=== PATIENT | female | born 1950 | race Caucasian/White ===

== ENCOUNTER 2017-07-12 22:03 | Observation (INO) | payer MEDICARE, OTHER ==
[~2017-07-12] VITALS: Ht 162.6 cm; Wt 97.0 kg
[2017-07-12] VITALS (7 sets, daily range): BP systolic 106–109; BP diastolic 50–68; PULSE 77–91; RESP 15–22; TEMP 98.3; O2SAT 79–97
[~2017-07-12 22:03] MED LIST: ADVA100A INH; AMLO5TAB2 PO; ASPI1TAB69 PO; LOSA100T PO
[2017-07-12] MEDS ORDERED: RESP: ALBUTEROL 2.5 MG/IPRATROPIUM 0.5 MG NEB (SCH) INH ONE (22:30)
[2017-07-12] MEDS ORDERED: MAGNESIUM SULFATE 1 GM PREMIX 100 ML IV ONE (22:30)
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
[2017-07-12] MEDS: RESP: ALBUTEROL 2.5 MG/3 ML NEB (SCH) INH ×2 (22:37→22:38)
--- NOTE | 2017-07-12 22:45 | RADRPT ---
EXAM DATE/TIME: 07/12/2017 22:20 [place] COMPARISON: No previous studies available for comparison. INDICATIONS : Shortness of breath. MEDICAL HISTORY : Chronic obstructive pulmonary disease. Hypertension SURGICAL HISTORY : None. ENCOUNTER: Initial ACUITY: 3 days PAIN SCORE: 0/10 LOCATION: Bilateral chest FINDINGS: Very mild atelectasis seen at both bases. No large effusion demonstrated. No pneumothorax. Heart size upper limits of normal. CONCLUSION: Mild bibasilar atelectasis. Daniel Eugene MD on July 12, 2017 at 22:43 Board Certified Radiologist. This report was verified electronically.
[2017-07-12 23:00] LABS: AUTOMATED NEUTROPHIL # 4.4 TH/MM3 (1.8-7.7); BASOPHIL % 0.6 % (0.0-2.0); EOSINOPHIL # 0.2 TH/MM3 (0-0.4); EOSINOPHIL % 2.6 % (0.0-4.0); HEMO FLAGS DIFF FINAL; LYMPH % 17.3 % (9.0-44.0); LYMPHOCYTE # 1.2 TH/MM3 (1.0-4.8); MEAN CORPUSCULAR HEMOGLOBIN 30.5 PG (27.0-34.0); MEAN CORPUSCULAR HGB CONC 32.5 % (32.0-36.0); MONO % 16.8 % (0.0-8.0); NEUT % 62.7 % (16.0-70.0); PLATELET COUNT 164 TH/MM3 (150-450); RED BLOOD COUNT 4.78 MIL/MM3 (4.00-5.30); RED CELL DISTRIBUTION WIDTH 13.3 % (11.6-17.2)
[2017-07-12] MEDS ORDERED: SODIUM CHLOR 0.9% 1000 ML INJ 1,000 ML IV ONE (23:00)
[2017-07-12 23:09] LABS: APTT (PATIENT) 26.8 SEC (24.3-30.1); PROTHROMBIN TIME - PATIENT 10.6 SEC (9.8-11.6)
[2017-07-12 23:16] LABS: ALKALINE PHOSPHATASE 55 U/L (45-117); ALT (GPT) 16 U/L (10-53); ANION GAP 4 MEQ/L (5-15); AST (GOT) 14 U/L (15-37); BICARBONATE 28.1 MEQ/L (21.0-32.0); BLOOD UREA NITROGEN 10 MG/DL (7-18); CHLORIDE 106 MEQ/L (98-107); GLOMERULAR FILTRATION RATE 79 ML/MIN (>89); POTASSIUM 4.1 MEQ/L (3.5-5.1); SODIUM (NA) 138 MEQ/L (136-145); TOTAL BILIRUBIN ADULT 0.3 MG/DL (0.2-1.0)
[2017-07-12 23:17] LABS: CREATINE KINASE 93 U/L (26-192)
[2017-07-12] MEDS ORDERED: RESP: ALBUTEROL 2.5 MG/3 ML NEB (PRN) INH (23:45)
[2017-07-12] MEDS ORDERED: SODIUM CHLORIDE 0.9% FLUSH 10 ML FLUSH IV FLUSH PRN (23:45)
[2017-07-12] MEDS ORDERED: ASPI81CH CHEW (23:49)
[2017-07-13] VITALS (28 sets, daily range): BP systolic 114–145; BP diastolic 60–83; PULSE 66–97; RESP 16–20; TEMP 97.4–99.3; O2SAT 91–95
[2017-07-13] MEDS ORDERED: RESP: ALBUTEROL 2.5 MG/IPRATROPIUM 0.5 MG NEB (SCH) INH (04:00)
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
[2017-07-13] MEDS: SODIUM CHLORIDE 0.9% FLUSH 10 ML FLUSH IV FLUSH SCH ×2 (09:39→21:00)
[2017-07-13] MEDS: amLODIPine BESYLATE 5 MG TAB PO SCH (09:40)
[2017-07-13] MEDS: ASPIRIN 81 MG CHEW TAB CHEW SCH (09:40)
[2017-07-13] MEDS: guaiFENesin E.R. 600 MG TAB PO SCH ×2 (09:40→20:40)
[2017-07-13] MEDS: LOSARTAN 50 MG TAB PO SCH (09:40)
[2017-07-13] MEDS: RESP: ALBUTEROL 2.5 MG/IPRATROPIUM 0.5 MG NEB (SCH) NEB ×3 (10:45→21:01)
[2017-07-13] MEDS ORDERED: PILL SPLITTER OTHER PRN (13:00)
[2017-07-13] MEDS ORDERED: methylPREDNISolone SOD SUCC 125 MG/2 ML VIAL IVP SCH (14:00)
[2017-07-13] MEDS: methylPREDNISolone SOD SUCC 125 MG/2 ML VIAL IV PUSH SCH ×2 (17:27→23:00)
--- NOTE | 2017-07-13 21:27 | EKG ---
Date Performed: 07/12/2017 Time Performed: 22:43:51 PTAGE: 66 years EKG: Sinus rhythm NORMAL ECG NO PREVIOUS TRACING DOCTOR: Alayna Pearson Interpretating Date/Time 07/13/2017 21:26:48
[2017-07-13] MEDS ORDERED: AZITHROMYCIN 250 MG TAB PO ONE (23:45)
[2017-07-14] VITALS (22 sets, daily range): BP systolic 106–139; BP diastolic 53–94; PULSE 59–95; RESP 19–20; TEMP 97.4–98.9; O2SAT 91–96
[2017-07-14] MEDS ORDERED: methylPREDNISolone SOD SUCC 125 MG/2 ML VIAL IVP SCH
[2017-07-14] MEDS: RESP: ALBUTEROL 2.5 MG/IPRATROPIUM 0.5 MG NEB (SCH) NEB ×4 (03:09→20:28)
[2017-07-14] MEDS ORDERED: AZIT250T3 PO (07:30)
[2017-07-14] MEDS ORDERED: PRED10 PO (07:30)
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
[2017-07-14] MEDS: LOSARTAN 50 MG TAB PO SCH (09:56)
[2017-07-14] MEDS: guaiFENesin E.R. 600 MG TAB PO SCH ×2 (09:56→21:33)
[2017-07-14] MEDS: predniSONE 20 MG TAB PO SCH ×2 (09:56→21:34)
[2017-07-14] MEDS: SODIUM CHLORIDE 0.9% FLUSH 10 ML FLUSH IV FLUSH SCH ×2 (09:56→21:36)
[2017-07-14] MEDS: ASPIRIN 81 MG CHEW TAB CHEW SCH (09:56)
[2017-07-14] MEDS: amLODIPine BESYLATE 5 MG TAB PO SCH (09:56)
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
[2017-07-14] MEDS ORDERED: AZITHROMYCIN 250 MG TAB PO SCH (21:00)
[2017-07-15 04:00] VITALS: PULSE 58
[2017-07-15] MEDS: RESP: ALBUTEROL 2.5 MG/IPRATROPIUM 0.5 MG NEB (SCH) NEB ×2 (04:36→09:46)
[2017-07-15 07:00] VITALS: PULSE 58
[2017-07-15 08:00] VITALS: BP 149/86; PULSE 58; PULSE 64; RESP 20; TEMP 98.5; O2SAT 93
[2017-07-15 09:00] VITALS: PULSE 64
[2017-07-15] MEDS: LOSARTAN 50 MG TAB PO SCH (09:23)
[2017-07-15] MEDS: guaiFENesin E.R. 600 MG TAB PO SCH (09:23)
[2017-07-15] MEDS: predniSONE 20 MG TAB PO SCH (09:24)
[2017-07-15] MEDS: amLODIPine BESYLATE 5 MG TAB PO SCH (09:25)
[2017-07-15] MEDS: SODIUM CHLORIDE 0.9% FLUSH 10 ML FLUSH IV FLUSH SCH (09:25)
[2017-07-15] MEDS: ASPIRIN 81 MG CHEW TAB CHEW SCH (09:25)
[2017-07-15 09:49] VITALS: O2SAT 93
== END 2017-07-15 10:45 | disposition home or self-care (01) ==
LOC: NEPD 22:03 → NEDA 23:43 → HCIS 07-13 00:48
PROVIDERS: ADMIT Hospitalist; ATTEND Hospitalist
DX: J44.1 Chronic obstructive pulmonary disease with (acute) exacerbation (principal); R09.02 Hypoxemia; I10 Essential (primary) hypertension; Z99.81 Dependence on supplemental oxygen; K59.00 Constipation, unspecified; Z72.0 Tobacco use
CPT/HCPCS: 71010; 80053; 82550; 83880; 84484; 85025; 85610; 85730; 87040; 87804; 93005; 94002; 94640; 94664; 96365; 96375; 96376; 99291; G0378; J2930; J3475; J7030; J7512; J7613

== ENCOUNTER 2018-06-18 09:00 | Inpatient (IN) ==
[2018-06-18] MEDS ORDERED: Sod Chloride 0.9% Inj 1,000 ML IV.CONT SCH (09:30)
--- NOTE | 2018-06-18 09:42 | ED ---
HPI General Chief Complaint: Abdominal Pain Stated Complaint: Abd Pain/Chills Time Seen by Provider: 06/18/18 09:13 Source: patient Mode of arrival: ambulatory Limitations: no limitations History of Present Illness HPI narrative: The patient is a 67-year-old female who presents to the emergency department for subjective fever, chills, body aches, abdominal pain, and diarrhea. The patient states her symptoms started this morning. The patient complains of bilateral flank pain and myalgias. She also complains of suprapubic pain with diarrhea which she describes as loose and watery. The patient denies any accompanying nausea, vomiting, or upper abdominal pain. The patient also notes subjective fever at home, chills, and body aches. The patient does have a history of COPD and is oxygen dependent at 5 L/min. The patient's primary physician is with [facility], Dr. Hernandez. The patient denies any dysuria, frequency, or urgency. Symptoms are moderate. There are no current alleviating or exacerbating factors. MD complaint: abdominal pain Onset (ago): hour(s) Pain Consistency: constant Location: suprapubic Severity: moderate Severity scale (1-10): 6 Quality: cramping and aching Radiation: none Migration to: no migration Relieving factors: nothing Exacerbating factors: nothing Associated symptoms: diarrhea, fever and chills Related Data Home Medications Medication Instructions Recorded Confirmed amlodipine 5 mg PO DAILY 06/18/18 06/18/18 aspirin 81 mg PO DAILY 06/18/18 06/18/18 ipratropium-albuterol 3 ml INHALATION QID PRN 06/18/18 06/18/18 losartan 50 mg PO DAILY 06/18/18 06/18/18 potassium chloride [K-Tab] 10 meq PO BID 06/18/18 06/18/18 Allergies Allergy/AdvReac Type Severity Reaction Status Date / Time penicillin G Allergy Intermediate yeast Verified 06/18/18 09:18 infection Review of Systems ROS: all other systems reviewed are negative [facility] Medical History Medical History COPD (chronic obstructive pulmonary disease) (Acute) Surgical History Surgical History H/O eye surgery (Acute) Social History Social History Substance History: No History of Abuse Second Hand Smoke Exposure: No Smoking Status: Current every day smoker Tobacco Type: Cigarettes How Often Do You Have a Drink Containing Alcohol: Never Recent Travel in [facility] within the Last 8 Weeks: No Recent Out of Country Travel within the Last 8 Weeks: No Immunization History Tetanus Immunization: Unsure Hx Influenza Vaccine This Season: Yes Exam Narrative Exam Narrative: GENERAL: Awake, alert, pleasant 67-year-old female who appears her stated age and is in no acute respiratory distress. SKIN: Focused skin assessment warm/dry. HEAD: Atraumatic. Normocephalic. EYES: Pupils equal and round. No scleral icterus. No injection or drainage. ENT: No nasal bleeding or discharge. No upper teeth noted. Slightly dry mucous membranes. NECK: Trachea midline. No JVD. CARDIOVASCULAR: Regular, tachycardic with a heart rate of 115. RESPIRATORY: No accessory muscle use. Prolonged expiratory phase. GASTROINTESTINAL: Abdomen soft, tender to palpation suprapubic and left lower quadrant. MUSCULOSKELETAL: No obvious deformities. No clubbing. No cyanosis. No edema. NEUROLOGICAL: Awake and alert. No obvious cranial nerve deficits. Motor grossly within normal limits. Normal speech. PSYCHIATRIC: Appropriate mood and affect; insight and judgment normal. Course Initial Documented Vital Signs Temperature 97.7 F 06/18/18 09:07 Pulse Rate 113 H 06/18/18 09:07 Respiratory Rate 29 H 06/18/18 09:07 Blood Pressure 115/57 L 06/18/18 09:07 Pulse Oximetry 86 L 06/18/18 09:07 Last Documented Vital Signs Temperature 97.7 F 06/18/18 09:07 Pulse Rate 98 H 06/18/18 15:58 Respiratory Rate 28 H 06/18/18 15:58 Blood Pressure 122/62 06/18/18 09:20 Pulse Oximetry 92 L 06/18/18 14:58 Medical Decision Making [facility] Narrative Medical decision making narrative: IV was established, labs are drawn and sent, and the patient was placed on cardiac telemetry monitoring and continuous pulse oximetry monitoring. EKG was ordered and interpreted. Chest x-ray was obtained. CT of the abdomen and pelvis with IV and oral contrast was ordered to evaluate for diverticulitis. Influenza screen was sent to lab. UA was sent to lab. X-ray was unremarkable. Influenza screen was negative. White count is elevated at 17.9. CT reveals abdominal aortic aneurysm and diffuse colitis. The patient does have tachycardia, leukocytosis, meets SIRS criteria. The patient was administered Cipro and Flagyl. The patient will be admitted to the on-call medical service for [facility]. Medical Screen Exam Complete: Yes Emergency Medical Condition: Yes Differential Diagnosis Differential Diagnosis: Differential diagnosis includes UTI, diverticulitis, influenza, viral syndrome, colitis, enteritis, pneumonia, bronchitis. Lab Data Lab results reviewed: Yes I reviewed the patient's lab results. Lab results narrative: White count is elevated at 17.9 Result diagrams: 06/18/18 11:05 06/18/18 09:40 Lab Results 06/18/18 06/18/18 06/18/18 Range/Units 09:40 09:40 11:05 WBC 17.9 H (4.0-11.0) th/mm3 RBC 4.83 (4.00-5.30) mil/mm3 Hgb 14.9 (11.6-15.3) gm/dL Hct 45.9 (35.0-46.0) % MCV 95.0 (80.0-100.0) fL MCH 30.8 (27.0-34.0) pg MCHC 32.4 (32.0-36.0) % RDW 13.7 (11.6-17.2) % Plt Count 165 (150-450) th/mm3 MPV 9.1 (7.0-11.0) fL Prelim Diff (Auto) Manual diff required WBC Differential Manual diff final Seg Neuts % (Manual) 60 (16-70) % Band Neuts % (Manual) 25 H (0-6) % Lymphocytes % (Manual) 4 L (9-44) % Monocytes % (Manual) 10 H (0-8) % Eosinophils % (Manual) 1 (0-4) % Abs Neuts (Manual) 15.2 H (1.8-7.7) th/mm3 Differential Comment . Platelet Estimate Normal (Normal) Platelet Morphology Clumped H (Normal) RBC Morphology Normal (Normal) Sodium 140 (136-145) meq/L Potassium 3.8 (3.5-5.1) meq/L Chloride 106 (98-107) meq/L Carbon Dioxide 27.1 (21.0-32.0) meq/L Anion Gap 7 (5-15) meq/L BUN 11 (7-18) mg/dL Creatinine 0.97 (0.50-1.00) mg/dL Estimated GFR 57 L (>89) mL/min Random Glucose 107 H (74-106) mg/dL Lactic Acid 1.2 (0.4-2.0) mmol/L Calcium 8.4 L (8.5-10.1) mg/dL Total Bilirubin 0.4 (0.2-1.0) mg/dL AST 13 L (15-37) U/L ALT 16 (10-53) U/L Alkaline Phosphatase 63 (45-117) U/L Total Protein 7.7 (6.4-8.2) g/dL Albumin 3.1 L (3.4-5.0) g/dL Lipase 86 (73-393) U/L Imaging Data Radiologist's impression: Abdomen/Pelvis CT 06/18/18 09:29 CONCLUSION: 1. Moderate sigmoid and scattered colonic diverticulosis. Diffuse mild colitis involving the descending and sigmoid colon. Overall, this appears more than expected for diverticulitis. Differential considerations including inflammatory and infectious etiologies. Ischemic etiology is felt to be less likely as the KIRSTIN and mesenteric veins are patent. 2. Large 5.5 cm fusiform infrarenal aortic aneurysm with bilateral common iliac aneurysms measuring 3.1 cm on the right and 2.1 cm on the left. 3. Ancillary findings include cholelithiasis, nonobstructive 5 mm calyceal calculus in the inferior pole the right kidney, and right renal cyst. Chest X-Ray 06/18/18 09:29 CONCLUSION: Underinflation with mild bibasilar opacity most likely representing atelectasis. Otherwise, no acute finding is identified. If symptoms persist, consider good inspiratory formal PA and lateral views of the chest. ECG Data EKG Prior to Arrival: No Attestation: I personally reviewed and interpreted this ECG as follows: Interpretation: EKG reveals sinus tachycardia with a heart rate 113. Nonspecific T-wave changes. Discharge Plan Discharge Disposition Patient Disposition: 30 Still Patient Discharge Condition Condition: Stable Discharge Details Diagnosis: Colitis, SIRS (systemic inflammatory response syndrome), Abdominal aortic aneurysm Physicians Team ED Provider: Jorge Wallace Primary Care Provider: UNKNOWN, Attending Provider: Chun Gunn Other Providers: Yan Oliver Status ED Status: Admitted Patient
--- NOTE | 2018-06-18 09:55 | XR ---
EXAM DATE: 06/18/2018 9:50 AM EDT AGE/SEX: 67 years / Female INDICATIONS: Cough and mid-abdominal pain. CLINICAL DATA: This is the patient's initial encounter. Patient reports that signs and symptoms have been present for 1 day and indicates a pain score of 6/10. MEDICAL/SURGICAL HISTORY: Chronic obstructive pulmonary disease. None. COMPARISON: [facility] [place], CHEST SINGLE AP, 07/12/2017. . FINDINGS: Portable AP view of the chest demonstrates a normal-sized cardiac silhouette. EKG lines overlie the p atient. There is mild bibasilar airspace opacity. No pleural effusion or pneumothorax is visualized. The bones and soft tissues demonstrate no acute abnormality. CONCLUSION: Underinflation with mild bibasilar opacity most likely representing atelectasis. Otherwise, no acute finding is identified. If symptoms persist, consider good inspiratory formal PA and lateral views of the chest. Electronically signed by: Daniel Mittal MD 06/18/2018 9:53 AM EDT
[2018-06-18] MEDS ORDERED: Diatrizoate Meglum/Diatrizoate Sod Liq 9 ML UDC ONE (09:56)
[2018-06-18] MEDS ORDERED: Diatrizoate Meglum/Diatrizoate Sod Liq 9 ML UDC PO ONE ×2 (09:59→10:02)
[2018-06-18 10:41] LABS: Alanine Aminotransferase 16 U/L (10-53); Albumin 3.1 g/dL (3.4-5.0); Anion Gap 7 meq/L (5-15); Aspartate Aminotransferase 13 U/L (15-37); Blood Urea Nitrogen 11 mg/dL (7-18); Calcium 8.4 mg/dL (8.5-10.1); Carbon Dioxide 27.1 meq/L (21.0-32.0); Chloride 106 meq/L (98-107); Glomerular Filtration Rate 57 mL/min (>89); Glucose,Random 107 mg/dL (74-106); Lipase 86 U/L (73-393); Potassium 3.8 meq/L (3.5-5.1); Sodium 140 meq/L (136-145)
[2018-06-18 10:43] LABS: Alkaline Phosphatase 63 U/L (45-117); Total Protein 7.7 g/dL (6.4-8.2)
[2018-06-18 11:28] LABS: Hematocrit 45.9 % (35.0-46.0); Hemoglobin 14.9 gm/dL (11.6-15.3); Mean Corpuscular HGB Conc 32.4 % (32.0-36.0); Mean Corpuscular Hemoglobin 30.8 pg (27.0-34.0); Mean Platelet Volume 9.1 fL (7.0-11.0); Platelet Count 165 th/mm3 (150-450); Red Blood Count 4.83 mil/mm3 (4.00-5.30); Red Cell Distribution Width 13.7 % (11.6-17.2); White Blood Count 17.9 th/mm3 (4.0-11.0)
[2018-06-18 11:59] LABS: Eosinophils 1 % (0-4); Lymphocytes 4 % (9-44); Monocytes 10 % (0-8)
[2018-06-18 12:00] LABS: Path Slide Review C; Platelet Estimate Normal (Normal); Platelet Morphology Clumped (Normal); RBC Morphology Normal (Normal)
--- NOTE | 2018-06-18 13:46 | CT ---
EXAM DATE: 06/18/2018 1:36 PM EDT AGE/SEX: 67 years / Female INDICATIONS: Abdomen pain with diarrhea today CLINICAL DATA: This is the patient's initial encounter. Patient reports that signs and symptoms have been present for 1 day and indicates a pain score of 8/10. MEDICAL/SURGICAL HISTORY: Chronic obstructive pulmonary disease. . Eye surgery ORAL CONTRAST: Prescribed oral contrast ingested. RADIATION DOSE: 16.08 CTDI (mGy) COMPARISON: No prior exams available for comparison. TECHNIQUE: Multiple contiguous axial images were obtained through the abdomen and pelvis following b olus infusion of 97ML ml Omnipaque 350 (iohexol) nonionic water-soluble contrast as a single exam d ose. Prescribed oral contrast ingested. Using automated exposure control and adjustment of the mA an d/or kV according to patient size, radiation dose was kept as low as reasonably achievable to obtain optimal diagnostic quality images. DICOM format image data is available electronically for review an d comparison. FINDINGS: LOWER LUNGS: Minimal groundglass opacities. LIVER: The liver has a homogeneous density without space-occupying lesion. There is no dilation of t he biliary tree. Single calcified gallstone in the gallbladder which otherwise appears unremarkable b y CT. SPLEEN: Homogeneous density without enlargement. PANCREAS: Unremarkable without mass or calcification. KIDNEYS: 2 cm cyst in the superior pole of the right kidney. 5 mm calyceal calculus in the inferior pole of the right kidney. Kidneys otherwise demonstrate symmetrical enhancement without evidence for hydronephrosis. ADRENAL GLANDS: Unremarkable. AORTA: There is a fusiform infrarenal abdominal aortic aneurysm measuring up to 5.5 cm in maximal axi al dimension. There is mild mural thrombus associated with the aneurysm. There is also a distal right common iliac artery aneurysm measuring up to 3.1 cm. Distal left common iliac artery aneurysm measur es 2.1 cm. BOWEL/MESENTERY: Moderate sigmoid diverticulosis and scattered colonic diverticula. There is mild pe ricolonic stranding and diffuse colonic wall thickening involving the descending colon and sigmoid co mikel extending to the rectum. Transverse colon and ascending colon are grossly unremarkable. There is a single loop of fluid-filled nondistended small bowel in the left lower quadrant. Bowel otherwise ap pears unremarkable. No significant drainable fluid collection or free fluid in the abdomen. No free a ir or pneumatosis. ABDOMINAL WALL: Intact. RETROPERITONEUM: No evidence of adenopathy in the retrocrural, para-aortic, or deep pelvic regions. BLADDER: Decompressed. REPRODUCTIVE: No abnormal masses or calcifications seen. BONY STRUCTURES: Unremarkable. CONCLUSION: 1. Moderate sigmoid and scattered colonic diverticulosis. Diffuse mild colitis involving the descend ing and sigmoid colon. Overall, this appears more than expected for diverticulitis. Differential cons iderations including inflammatory and infectious etiologies. Ischemic etiology is felt to be less lik silva as the KIRSTIN and mesenteric veins are patent. 2. Large 5.5 cm fusiform infrarenal aortic aneurysm with bilateral common iliac aneurysms measuring 3.1 cm on the right and 2.1 cm on the left. 3. Ancillary findings include cholelithiasis, nonobstructive 5 mm calyceal calculus in the inferior pole the right kidney, and right renal cyst. Electronically signed by: Dorian Zepeda MD 06/18/2018 1:44 PM EDT
[2018-06-18] MEDS ORDERED: Ciprofloxacin 400 MG/200 ML 400 MG/200 ML PIGGYBACK IV.SIG ONE (13:48)
--- NOTE | 2018-06-18 14:04 | P.HP ---
<Kathy Rowley W - Last Filed: 06/18/18 14:56> History of Present Illness Primary Care Physician: UNKNOWN Chief Complaint: diarrhea and lower abd pain History of Present Illness: This is a 67-year-old female patient with past medical history which includes COPD chronically on 5 L oxygen via nasal cannula and hypertension. Patient presents to the emergency department for subjective fever, chills, body aches, abdominal pain, and diarrhea. The patient states her symptoms started this morning. The patient complains of bilateral flank pain and myalgias. She also complains of suprapubic pain with diarrhea which she describes as loose and watery. The patient denies any accompanying nausea, vomiting, or upper abdominal pain. The patient also notes subjective fever at home, chills, and body aches. The patient does have a history of COPD and is oxygen dependent at 5 L/min. The patient's primary physician is with [facility], Dr. Hernandez. The patient denies any dysuria, frequency, or urgency. Symptoms are moderate. There are no current alleviating or exacerbating factors. Past Medical History COPD on 5L oxygen via NC and HTN Past Surgical History tubal ligation Family History reports HTN runs in her family Social History Smoked one pack per day from 1985 to 2017 has cut back to 2-3 cigarettes per day Denies EtOH use. Denies illicit drug use - Diagnosis (1) Colitis (2) Abdominal aortic aneurysm Review of Systems All other systems reviewed negative except as stated in [facility] - History History Provided By: Patient - Medical History Medical History: Medical History (Last Updated 06/18/18 @ 09:18 by [facility]) COPD (chronic obstructive pulmonary disease) - Surgical History Surgical History: Surgical History (Last Updated 06/18/18 @ 09:18 by [facility]) H/O eye surgery - Tobacco History Second Hand Smoke Exposure: No Tobacco Use In Past 30 Days: Yes Smoking Status: Current every day smoker Tobacco Type: Cigarettes - Alcohol History How Often Do You Have a Drink Containing Alcohol: Never - Substance Use History Substance History: No History of Abuse - Travel History Recent Travel in the [facility] Within the Last 8 Weeks: No Recent Travel Out of the Country Within the Last 8 Weeks: No - Immunization History Tetanus Immunization: Unsure Hx Influenza Vaccine This Season: Yes Medications and Allergies Allergies Allergy/AdvReac Type Severity Reaction Status Date / Time penicillin G Allergy Intermediate yeast Verified 06/18/18 09:18 infection Home Medications Medication Instructions Recorded Confirmed Type amlodipine 5 mg PO DAILY 06/18/18 06/18/18 History aspirin 81 mg PO DAILY 06/18/18 06/18/18 History ipratropium-albuterol 3 ml INHALATION QID PRN 06/18/18 06/18/18 History losartan 50 mg PO DAILY 06/18/18 06/18/18 History potassium chloride [K-Tab] 10 meq PO BID 06/18/18 06/18/18 History Active Medications: Active Medications Sodium Chloride (Ns Inj) 1,000 mls @ 125 mls/hr IV.CONT .Q8H PATSY Stop: 06/18/18 17:29 Last Admin: 06/18/18 09:51 Dose: 125 mls/hr Metronidazole/Sodium Chloride (Flagyl 500 Mg Inj) 100 mls @ 100 mls/hr IV.SIG ONCE ONE Stop: 06/18/18 14:47 Ciprofloxacin/Dextrose (Cipro 400 Mg/200 Ml Inj) 400 mg in 200 mls @ 200 mls/ hr IV.SIG ONCE ONE Stop: 06/18/18 14:47 Sodium Chloride (Ns Flush) 2 ml IV.FLUSH PRN PRN PRN Reason: FLUSH AFTER USING IV ACCESS Last Admin: 06/18/18 09:51 Dose: 2 ml Exam Vital signs: Vital Signs 06/18/18 09:07 06/18/18 09:20 06/18/18 10:08 Temperature 97.7 F Pulse Rate 113 H 113 H Respiratory Rate 29 H 29 H Blood Pressure 115/57 L 122/62 Pulse Oximetry 86 L 91 L 91 L Intake & Output 06/17/18 06/18/18 06/18/18 18:59 06:59 18:59 Weight 95.254 kg Narrative: GENERAL: This is an obese 67 year old female SKIN: No rashes, ecchymoses or lesions. Cool and dry. HEAD: Atraumatic. Normocephalic. No temporal or scalp tenderness. CARDIOVASCULAR: Regular rate and rhythm RESPIRATORY: Diminished through out with mild expiratory wheezing GASTROINTESTINAL: Abdomen soft, mild tenderness bilateral lower quadrants, nondistended. MUSCULOSKELETAL: Extremities without clubbing, cyanosis. No joint tenderness, effusion, or edema noted. No calf tenderness. Negative Homans sign bilaterally. trace bilateral lower extremities NEUROLOGICAL: Awake and alert. No focal deficits noted. Motor and sensory grossly within normal limits. 4-5 out of 5 muscle strength in all muscle groups. Normal speech. Results - Labs CBC & Chem 7: 06/18/18 11:05 06/18/18 09:40 Labs: Laboratory Results - last 24 hr 06/18/18 06/18/18 06/18/18 09:40 09:40 11:05 WBC 17.9 H RBC 4.83 Hgb 14.9 Hct 45.9 MCV 95.0 MCH 30.8 MCHC 32.4 RDW 13.7 Plt Count 165 MPV 9.1 Prelim Diff (Auto) Manual diff required WBC Differential Manual diff final Seg Neuts % (Manual) 60 Band Neuts % (Manual) 25 H Lymphocytes % (Manual) 4 L Monocytes % (Manual) 10 H Eosinophils % (Manual) 1 Abs Neuts (Manual) 15.2 H Differential Comment . Platelet Estimate Normal Platelet Morphology Clumped H RBC Morphology Normal Sodium 140 Potassium 3.8 Chloride 106 Carbon Dioxide 27.1 Anion Gap 7 BUN 11 Creatinine 0.97 Estimated GFR 57 L Random Glucose 107 H Lactic Acid 1.2 Calcium 8.4 L Total Bilirubin 0.4 AST 13 L ALT 16 Alkaline Phosphatase 63 Total Protein 7.7 Albumin 3.1 L Lipase 86 - Imaging Impressions Abdomen/Pelvis CT 06/18/18 09:29 CONCLUSION: 1. Moderate sigmoid and scattered colonic diverticulosis. Diffuse mild colitis involving the descending and sigmoid colon. Overall, this appears more than expected for diverticulitis. Differential considerations including inflammatory and infectious etiologies. Ischemic etiology is felt to be less likely as the KIRSTIN and mesenteric veins are patent. 2. Large 5.5 cm fusiform infrarenal aortic aneurysm with bilateral common iliac aneurysms measuring 3.1 cm on the right and 2.1 cm on the left. 3. Ancillary findings include cholelithiasis, nonobstructive 5 mm calyceal calculus in the inferior pole the right kidney, and right renal cyst. Chest X-Ray 06/18/18 09:29 CONCLUSION: Underinflation with mild bibasilar opacity most likely representing atelectasis. Otherwise, no acute finding is identified. If symptoms persist, consider good inspiratory formal PA and lateral views of the chest. Caprini VTE Risk Assessment Caprini VTE Risk Assessment: Moderate/High Risk (score >= 2) Caprini Risk Assessment Model: Point Value = 1 Point Value = 2 Point Value = 3 Point Value = 5 Age 41-60 Minor surgery BMI > 25 kg/m2 Swollen legs Varicose veins or History of unexplained or recurrent spontaneous Oral contraceptives or hormone replacement Sepsis (< 1 month) Serious lung disease, including pneumonia (< 1 month) Abnormal pulmonary function Acute myocardial infarction Congestive heart failure (< 1 month) History of inflammatory bowel disease Medical patient at bed rest Age 61-74 Arthroscopic surgery Major open surgery (> 45 min) Laparoscopic surgery (> 45 min) Malignancy Confined to bed (> 72 hours) Immobilizing plaster cast Central venous access Age >= 75 History of VTE Family history of VTE Factor V Leiden Prothrombin [id number] Lupus anticoagulant Anticardiolipin antibodies Elevated serum homocysteine Heparin-induced thrombocytopenia Other congenital or acquired thrombophilia Stroke (< 1 month) Elective arthroplasty Hip, pelvis, or leg fracture Acute spinal cord injury (< 1 month) Prophylaxis Regimen: Total Risk Factor Score Risk Level Prophylaxis Regimen 0-1 Low Early ambulation 2 Moderate Order ONE of the following: *Sequential Compression Device (SCD) *Heparin 5000 units SQ BID 3-4 Higher Order ONE of the following medications: *Heparin 5000 units SQ TID *Enoxaparin/Lovenox 40 mg SQ daily (WT < 150 kg, CrCl > 30 mL/min) *Enoxaparin/Lovenox 30 mg SQ daily (WT < 150 kg, CrCl > 10-29 mL/min) *Enoxaparin/Lovenox 30 mg SQ BID (WT < 150 kg, CrCl > 30 mL/min) AND/OR *Sequential Compression Device (SCD) 5 or more Highest Order ONE of the following medications: *Heparin 5000 units SQ TID (Preferred with Epidurals) *Enoxaparin/Lovenox 40 mg SQ daily (WT < 150 kg, CrCl > 30 mL/min) *Enoxaparin/Lovenox 30 mg SQ daily (WT < 150 kg, CrCl > 10-29 mL/min) *Enoxaparin/Lovenox 30 mg SQ BID (WT < 150 kg, CrCl > 30 mL/min) AND *Sequential Compression Device (SCD) Assessment and Plan - Assessment (1) Colitis Code(s): K52.9 - Noninfective gastroenteritis and colitis, unspecified Status : Acute Plan: This is a 67-year-old female patient with past medical history which includes COPD chronically on 5 L oxygen via nasal cannula and hypertension. Patient presents to the emergency department for subjective fever, chills, body aches, abdominal pain, and diarrhea. The patient states her symptoms started this morning. The patient complains of bilateral flank pain and myalgias. She also complains of suprapubic pain with diarrhea which she describes as loose and watery. The patient denies any accompanying nausea, vomiting, or upper abdominal pain. The patient also notes subjective fever at home, chills, and body aches. The patient does have a history of COPD and is oxygen dependent at 5 L/min. The patient's primary physician is with [facility], Dr. Hernandez. The patient denies any dysuria, frequency, or urgency. Symptoms are moderate. There are no current alleviating or exacerbating factors. Colitis lower abd pain and diarrhea Abdomen/Pelvis CT 06/18/18 09:29 CONCLUSION: 1. Moderate sigmoid and scattered colonic diverticulosis. Diffuse mild colitis involving the descending and sigmoid colon. Overall, this appears more than expected for diverticulitis. Differential considerations including inflammatory and infectious etiologies. Ischemic etiology is felt to be less likely as the KIRSTIN and mesenteric veins are patent. 2. Large 5.5 cm fusiform infrarenal aortic aneurysm with bilateral common iliac aneurysms measuring 3.1 cm on the right and 2.1 cm on the left. 3. Ancillary findings include cholelithiasis, nonobstructive 5 mm calyceal calculus in the inferior pole the right kidney, and right renal cyst. consult vascular surgery to evaluated aneurysm IV fluids continue Levaquin and Flagyl IV COPD exacerbation Chest X-Ray 06/18/18 09:29 CONCLUSION: Underinflation with mild bibasilar opacity most likely representing atelectasis. Otherwise, no acute finding is identified. If symptoms persist, consider good inspiratory formal PA and lateral views of the chest. Duonebs Q6H and as needed continue patient's home oxygen 5L solu medrol 125 mg IV now then 60mg Q8H HTN (hypertension) continue patient's home amlodipine Tobacco abuse patient counselled encouraged to abstain DVT prophylaxis with SCDs (2) Abdominal aortic aneurysm Code(s): I71.4 - Abdominal aortic aneurysm, without rupture Status: Acute <Chun Gunn - Last Filed: 06/20/18 13:18> History of Present Illness Primary Care Physician: UNKNOWN - Diagnosis (1) Colitis (2) Abdominal aortic aneurysm (3) C. difficile colitis Inpatient Certification: I certify that the inpatient services were ordered in accordance with Medicare regulations governing the order. This includes certification that hospital inpatient services are reasonable and necessary and in the case of services not specified as inpatient-only under 42 CFR 419.22(n), that they are appropriately provided as inpatient services in accordance to with the 2-midnight benchmark under 43 CFR 412.3(e) PMFSH - Medical History Medical History: Medical History (Last Updated 06/18/18 @ 09:18 by [facility]) COPD (chronic obstructive pulmonary disease) - Surgical History Surgical History: Surgical History (Last Updated 06/18/18 @ 09:18 by [facility]) H/O eye surgery Medications and Allergies Active Medications: Active Medications Hydrocodone Bitart/Acetaminophen ([place] 5/325) 1 tab PO Q6H PRN PRN Reason: PAIN SCALE 1 TO 10 Last Admin: 06/18/18 22:32 Dose: 1 tab Al Hydroxide/Mg Hydroxide (Milk Of [place]oatjana Ritchie) 30 ml PO Q12H PRN PRN Reason: Mild Constipation Albuterol (Duoneb Neb (Prn)) 1 ampul NEB Q2HR NEB PRN PRN Reason: SHORTNESS OF BREATH/WHEEZING Albuterol (Duoneb Neb (Patsy)) 1 ampul NEB Q6HR NEB PATSY Last Admin: 06/20/18 08:57 Dose: 1 ampul Amlodipine Besylate (Norvasc) 5 mg PO DAILY [facility] Last Admin: 06/20/18 08:21 Dose: 5 mg Losartan Potassium (Cozaar) 50 mg PO DAILY [facility] Last Admin: 06/20/18 08:21 Dose: 50 mg Ondansetron HCl (Zofran Inj) 4 mg IV.PUSH Q6H PRN PRN Reason: NAUSEA OR VOMITING Prednisone (Deltasone) 20 mg PO BID [facility] Last Admin: 06/20/18 08:21 Dose: 20 mg Senna/Docusate Sodium (Katelin-Colace) 1 tab PO BID [facility] Last Admin: 06/20/18 08:12 Dose: Not Given Sodium Chloride (Ns Flush) 2 ml IV.FLUSH PRN PRN PRN Reason: FLUSH AFTER USING IV ACCESS Last Admin: 06/18/18 09:51 Dose: 2 ml Vancomycin HCl (Vancomycin Po) 125 mg PO QID [facility] Last Admin: 06/20/18 12:36 Dose: 125 mg Exam Vital signs: Vital Signs 06/19/18 15:33 06/19/18 16:00 06/19/18 20:00 Temperature 97.7 F 97.8 F Pulse Rate 75 86 91 H Respiratory Rate 15 16 17 Blood Pressure 141/66 H 118/66 Pulse Oximetry 92 L 93 L 06/19/18 22:07 06/20/18 00:00 06/20/18 04:50 Temperature 97.7 F Pulse Rate 73 80 65 Respiratory Rate 18 19 18 Blood Pressure 111/58 L Pulse Oximetry 95 96 06/20/18 08:00 06/20/18 08:58 06/20/18 12:00 Temperature 97.6 F 97.7 F Pulse Rate 66 63 62 Respiratory Rate 18 15 16 Blood Pressure 126/71 108/59 L Pulse Oximetry 97 97 96 Intake & Output 06/19/18 06/20/18 06/20/18 18:59 06:59 18:59 Intake Total 1680 / 1680 480 / 480 Balance 1680 / 1680 480 / 480 Intake: IV 1200 / 1200 1/2 Normal Saline Inj 1,000 ML 1000 / 1000 @ 75 mls/hr IV.CONT .[id number] [facility] Rx#:[id number] Levaquin 500 mg Premix Inj 500 100 / 100 mg In 100 ml @ 100 mls/hr IV. SIG Q24H [facility] Rx#:[id number] Flagyl 500 MG Inj 100 ML @ 100 100 / 100 mls/hr IV.SIG Q8H [facility] Rx#: [id number] Oral 480 / 480 480 / 480 Other: # Voids 2 2 Date of Last Bowel Movement 06/19/18 06/19/18 # Bowel Movements 3 Results - Labs CBC & Chem 7: 06/19/18 05:53 06/19/18 05:53 Labs: Laboratory Results - last 24 hr 06/19/18 09:56 Stl C.difficile Tox PCR Positive H St C. diff Tox Epid 027 Positive H Caprini VTE Risk Assessment Caprini Risk Assessment Model: Point Value = 1 Point Value = 2 Point Value = 3 Point Value = 5 Age 41-60 Minor surgery BMI > 25 kg/m2 Swollen legs Varicose veins or History of unexplained or recurrent spontaneous Oral contraceptives or hormone replacement Sepsis (< 1 month) Serious lung disease, including pneumonia (< 1 month) Abnormal pulmonary function Acute myocardial infarction Congestive heart failure (< 1 month) History of inflammatory bowel disease Medical patient at bed rest Age 61-74 Arthroscopic surgery Major open surgery (> 45 min) Laparoscopic surgery (> 45 min) Malignancy Confined to bed (> 72 hours) Immobilizing plaster cast Central venous access Age >= 75 History of VTE Family history of VTE Factor V Leiden Prothrombin [id number] Lupus anticoagulant Anticardiolipin antibodies Elevated serum homocysteine Heparin-induced thrombocytopenia Other congenital or acquired thrombophilia Stroke (< 1 month) Elective arthroplasty Hip, pelvis, or leg fracture Acute spinal cord injury (< 1 month) Prophylaxis Regimen: Total Risk Factor Score Risk Level Prophylaxis Regimen 0-1 Low Early ambulation 2 Moderate Order ONE of the following: *Sequential Compression Device (SCD) *Heparin 5000 units SQ BID 3-4 Higher Order ONE of the following medications: *Heparin 5000 units SQ TID *Enoxaparin/Lovenox 40 mg SQ daily (WT < 150 kg, CrCl > 30 mL/min) *Enoxaparin/Lovenox 30 mg SQ daily (WT < 150 kg, CrCl > 10-29 mL/min) *Enoxaparin/Lovenox 30 mg SQ BID (WT < 150 kg, CrCl > 30 mL/min) AND/OR *Sequential Compression Device (SCD) 5 or more Highest Order ONE of the following medications: *Heparin 5000 units SQ TID (Preferred with Epidurals) *Enoxaparin/Lovenox 40 mg SQ daily (WT < 150 kg, CrCl > 30 mL/min) *Enoxaparin/Lovenox 30 mg SQ daily (WT < 150 kg, CrCl > 10-29 mL/min) *Enoxaparin/Lovenox 30 mg SQ BID (WT < 150 kg, CrCl > 30 mL/min) AND *Sequential Compression Device (SCD) Assessment and Plan - Assessment (1) Colitis Code(s): K52.9 - Noninfective gastroenteritis and colitis, unspecified Status : Acute (2) Abdominal aortic aneurysm Code(s): I71.4 - Abdominal aortic aneurysm, without rupture Status: Acute (3) C. difficile colitis Code(s): A04.72 - Enterocolitis due to Clostridium difficile, not specified as recurrent Status: Acute - Attending Attestation Patient examined. Assessment and plan formulated with Kathy RENE I agree with the above. <Kathy Rowley - Last Filed: 06/18/18 14:56> (2) Abdominal aortic aneurysm Qualifiers: Presence of rupture: without rupture Qualified Code(s): I71.4 - Abdominal aortic aneurysm, without rupture <Chun Gunn - Last Filed: 06/20/18 13:18> (2) Abdominal aortic aneurysm Qualifiers: Presence of rupture: without rupture Qualified Code(s): I71.4 - Abdominal aortic aneurysm, without rupture
[2018-06-18] MEDS ORDERED: MethylPREDNISolone Sod Succinate Inj 125 MG/2 ML Vial IV.PUSH ONE (14:40)
[2018-06-18] MEDS ORDERED: Sodium Chloride 0.45 % Inj 1,000 ML IV.CONT SCH (14:45)
--- NOTE | 2018-06-18 15:56 | ECG ---
Date Performed: 06/18/2018 Time Performed: 09:16:59 PTAGE: 67 years EKG: SINUS TACHYCARDIA NONSPECIFIC T-WAVE ABNORMALITY ABNORMAL RHYTHM ECG Compared to PREVIOUS TRACING , the minor ST-T changes are new. PREVIOUS TRACIN07/12/2017 22.43.51 DOCTOR: Mode Mckeon Interpretating Date/Time 06/18/2018 15:55:44
[2018-06-18] MEDS: Levofloxacin 500 mg Premix Inj 500 MG/100 ML PIGGYBACK IV.SIG SCH (16:23)
[2018-06-18] MEDS: Senna/Docusate Sodium 8.6/50 MG Tablet PO SCH (20:38)
[2018-06-18] MEDS ORDERED: Ciprofloxacin 500 MG Tablet PO SCH (21:00)
[2018-06-18] MEDS ORDERED: metroNIDAZOLE 500 MG Tablet PO SCH (22:00)
[2018-06-18] MEDS: MethylPREDNISolone Sod Succinate Inj 125 MG/2 ML Vial IV.PUSH SCH (22:34)
[2018-06-19] MEDS: MethylPREDNISolone Sod Succinate Inj 125 MG/2 ML Vial IV.PUSH SCH (05:10)
[2018-06-19 07:13] LABS: Baso % (Auto) 0.2 % (0.0-2.0); Hematocrit 41.9 % (35.0-46.0); Hemoglobin 13.7 gm/dL (11.6-15.3); Lymph # (Auto) 0.9 th/mm3 (1.0-4.8); Lymph % (Auto) 5.4 % (9.0-44.0); Mean Corpuscular HGB Conc 32.8 % (32.0-36.0); Mean Corpuscular Volume 94.4 fL (80.0-100.0); Mono # (Auto) 0.5 th/mm3 (0.0-0.9); Neut # (Auto) 14.9 th/mm3 (1.8-7.7); Neut % (Auto) 91.4 % (16.0-70.0); Platelet Count 159 th/mm3 (150-450); Red Blood Count 4.44 mil/mm3 (4.00-5.30); Red Cell Distribution Width 13.7 % (11.6-17.2); White Blood Count 16.3 th/mm3 (4.0-11.0)
--- NOTE | 2018-06-19 07:16 | P.CONVS ---
History of Present Illness Service: Vascular Surgery Consult date: 06/19/18 Primary Care Provider: UNKNOWN Chief Complaint: diarrhea and lower abd pain History of Present Illness: 67 yo female admitted with enteritis. CT from ED shows AAA. No prior personal knowledge of AAA. Abdominal pain less and diarrhea persists. Review of Systems Constitutional: Reports chills, Reports fever(s) Cardiovascular: Denies chest pain Respiratory: Reports shortness of breath, Reports wheezing Gastrointestinal: Reports abdominal pain, Reports change in bowel habits, Reports loose stools Musculoskeletal: Reports joint swelling PMFSH - History History Provided By: Patient - Medical History Medical History: Medical History (Last Reviewed 06/19/18 @ 07:13 by Yan Oliver MD) COPD (chronic obstructive pulmonary disease) - Surgical History Surgical History: Surgical History (Last Reviewed 06/19/18 @ 07:13 by Yan Oliver MD) H/O eye surgery - Tobacco History Second Hand Smoke Exposure: No Tobacco Use In Past 30 Days: Yes Smoking Status: Light tobacco smoker Tobacco Type: Cigarettes - Alcohol History How Often Do You Have a Drink Containing Alcohol: Never - Substance Use History Substance History: No History of Abuse - Travel History Recent Travel in the [place] Within the Last 8 Weeks: No Recent Travel Out of the Country Within the Last 8 Weeks: No - Immunization History Tetanus Immunization: Unsure Hx Influenza Vaccine This Season: Yes Medications and Allergies Active Medications: Active Medications Hydrocodone Bitart/Acetaminophen ([place] 5/325) 1 tab PO Q6H PRN PRN Reason: PAIN SCALE 1 TO 10 Last Admin: 06/18/18 22:32 Dose: 1 tab Al Hydroxide/Mg Hydroxide (Milk Of Magnjana Liq) 30 ml PO Q12H PRN PRN Reason: Mild Constipation Albuterol (Duoneb Neb (Prn)) 1 ampul NEB Q2HR NEB PRN PRN Reason: SHORTNESS OF BREATH/WHEEZING Albuterol (Duoneb Neb (Patsy)) 1 ampul NEB Q6HR NEB PATSY Last Admin: 06/19/18 03:42 Dose: 1 ampul Amlodipine Besylate (Norvasc) 5 mg PO DAILY PATSY Metronidazole/Sodium Chloride (Flagyl 500 Mg Inj) 100 mls @ 100 mls/hr IV.SIG Q8H PATSY Last Admin: 06/19/18 00:22 Dose: 200 mls/hr Levofloxacin/Dextrose (Levaquin 500 Mg Premix Inj) 500 mg in 100 mls @ 100 mls/ hr IV.SIG Q24H [facility] Last Infusion: 06/18/18 19:23 Dose: Infused Losartan Potassium (Cozaar) 50 mg PO DAILY [facility] Methylprednisolone Sodium Succinate (Solumedrol Inj) 60 mg IV.PUSH Q8HR [facility] Last Admin: 06/19/18 05:10 Dose: 60 mg Ondansetron HCl (Zofran Inj) 4 mg IV.PUSH Q6H PRN PRN Reason: NAUSEA OR VOMITING Senna/Docusate Sodium (Katelin-Colace) 1 tab PO BID [facility] Last Admin: 06/18/18 20:38 Dose: Not Given Sodium Chloride (Ns Flush) 2 ml IV.FLUSH PRN PRN PRN Reason: FLUSH AFTER USING IV ACCESS Last Admin: 06/18/18 09:51 Dose: 2 ml Allergies Allergy/AdvReac Type Severity Reaction Status Date / Time penicillin G Allergy Intermediate yeast Verified 06/18/18 09:18 infection Home Medications Medication Instructions Recorded Confirmed Type amlodipine 5 mg PO DAILY 06/18/18 06/18/18 History aspirin 81 mg PO DAILY 06/18/18 06/18/18 History ipratropium-albuterol 3 ml INHALATION QID PRN 06/18/18 06/18/18 History losartan 50 mg PO DAILY 06/18/18 06/18/18 History potassium chloride [K-Tab] 10 meq PO BID 06/18/18 06/18/18 History Physical Exam Vital Signs / I&O: Vital Signs 06/18/18 09:07 06/18/18 09:20 06/18/18 10:08 Temperature 97.7 F Pulse Rate 113 H 113 H Respiratory Rate 29 H 29 H Blood Pressure 115/57 L 122/62 Pulse Oximetry 86 L 91 L 91 L 06/18/18 14:34 06/18/18 14:58 06/18/18 15:58 Temperature Pulse Rate 101 H 103 H 98 H Respiratory Rate 24 28 H 28 H Blood Pressure Pulse Oximetry 95 92 L 06/18/18 16:30 06/18/18 17:57 06/18/18 20:00 Temperature 97.9 F 98.2 F Pulse Rate 103 H 96 H 83 Respiratory Rate 24 17 19 Blood Pressure 92/55 L 107/56 L 98/52 L Pulse Oximetry 90 L 92 L 08/19/18 20:04 06/19/18 00:00 06/19/18 00:28 Temperature 98.3 F Pulse Rate 84 83 Respiratory Rate 16 18 20 Blood Pressure 115/56 L Pulse Oximetry 92 L 91 L 06/19/18 04:00 06/19/18 05:19 Temperature 98.0 F Pulse Rate 64 Respiratory Rate 18 Blood Pressure 90/51 L 95/52 L Pulse Oximetry 94 L Intake & Output 06/18/18 06/19/18 06/19/18 18:59 06:59 18:59 Intake Total 460 / 460 Balance 460 / 460 Weight 95.254 kg Intake: IV 100 / 100 Levaquin 500 mg Premix Inj 500 100 / 100 mg In 100 ml @ 100 mls/hr IV. SIG Q24H PATSY Rx#:[id number] Oral 360 / 360 Other: # Voids 1 Date of Last Bowel Movement 06/18/18 # Bowel Movements 1 1 Neuro: alert, oriented HEENT: NC/AT Neck: no JVD Heart: reg rate Lungs: + expiratory wheeze Abdomen: mildly TTP but no peritonitis. AAA nontender though difficult to palpate Vascular: palpable pedal pulses Extremities: trace B pedal edema Laboratory Results - last 24 hr 06/18/18 06/18/18 06/18/18 09:40 09:40 11:05 WBC 17.9 H RBC 4.83 Hgb 14.9 Hct 45.9 MCV 95.0 MCH 30.8 MCHC 32.4 RDW 13.7 Plt Count 165 MPV 9.1 Prelim Diff (Auto) Manual diff required WBC Differential Manual diff final Seg Neuts % (Manual) 60 Band Neuts % (Manual) 25 H Lymphocytes % (Manual) 4 L Monocytes % (Manual) 10 H Eosinophils % (Manual) 1 Abs Neuts (Manual) 15.2 H Differential Comment . Platelet Estimate Normal Platelet Morphology Clumped H RBC Morphology Normal Sodium 140 Potassium 3.8 Chloride 106 Carbon Dioxide 27.1 Anion Gap 7 BUN 11 Creatinine 0.97 Estimated GFR 57 L Random Glucose 107 H Lactic Acid 1.2 Calcium 8.4 L Total Bilirubin 0.4 AST 13 L ALT 16 Alkaline Phosphatase 63 Total Protein 7.7 Albumin 3.1 L Lipase 86 Microbiology 06/18/18 10:00 Influenza Types A,B Antigen - Final Nasal Wash Negative for FLU A and B antigen Infection due to influenza A or B cannot be ruled out since the antigen present in the sample may be below the detection limit of the test. Impressions Abdomen/Pelvis CT 06/18/18 09:29 CONCLUSION: 1. Moderate sigmoid and scattered colonic diverticulosis. Diffuse mild colitis involving the descending and sigmoid colon. Overall, this appears more than expected for diverticulitis. Differential considerations including inflammatory and infectious etiologies. Ischemic etiology is felt to be less likely as the KIRSTIN and mesenteric veins are patent. 2. Large 5.5 cm fusiform infrarenal aortic aneurysm with bilateral common iliac aneurysms measuring 3.1 cm on the right and 2.1 cm on the left. 3. Ancillary findings include cholelithiasis, nonobstructive 5 mm calyceal calculus in the inferior pole the right kidney, and right renal cyst. Chest X-Ray 06/18/18 09:29 CONCLUSION: Underinflation with mild bibasilar opacity most likely representing atelectasis. Otherwise, no acute finding is identified. If symptoms persist, consider good inspiratory formal PA and lateral views of the chest. Assessment and Plan - Assessment (1) Abdominal aortic aneurysm Code(s): I71.4 - Abdominal aortic aneurysm, without rupture Status: Acute - Plan 5.5 cm intact, asymptomatic AAA. I propose continued therapy for her colitis and then RTC 1 week with dedicated aortic CTA. Anatomy favorable for EVAR, likely iliac branch on the RIGHT given RIGHT iliac aneurysm. Pt agrees to plan. Yan Oliver MD FACS RPVI manager reporting [facility] - Heart and Vascular Surgery at [facility] [phone] (1) Abdominal aortic aneurysm Qualifiers: Presence of rupture: without rupture Qualified Code(s): I71.4 - Abdominal aortic aneurysm, without rupture
[2018-06-19 07:49] LABS: Calcium 8.1 mg/dL (8.5-10.1); Carbon Dioxide 24.7 meq/L (21.0-32.0); Potassium 3.7 meq/L (3.5-5.1)
[2018-06-19] MEDS: amLODIPine 5 MG Tablet PO SCH ×2 (08:15→10:11)
[2018-06-19] MEDS: Senna/Docusate Sodium 8.6/50 MG Tablet PO SCH ×2 (08:15→21:30)
--- NOTE | 2018-06-19 09:13 | P.PNIM ---
Subjective Interval history: Patient laying in bed watching TV reports feeling better than yesterday denies SOB abd pain resolved diarrhea still present 3 loose/liquid BMs last night - denies blood or black color Physical Exam Vital signs: Vital Signs 06/18/18 09:20 06/18/18 10:08 06/18/18 14:34 Temperature Pulse Rate 113 H 101 H Respiratory Rate 29 H 24 Blood Pressure 122/62 Pulse Oximetry 91 L 91 L 95 06/18/18 14:58 06/18/18 15:58 06/18/18 16:30 Temperature Pulse Rate 103 H 98 H 103 H Respiratory Rate 28 H 28 H 24 Blood Pressure 92/55 L Pulse Oximetry 92 L 06/18/18 17:57 06/18/18 20:00 06/18/18 20:04 Temperature 97.9 F 98.2 F Pulse Rate 96 H 83 84 Respiratory Rate 17 19 16 Blood Pressure 107/56 L 98/52 L Pulse Oximetry 90 L 92 L 92 L 06/19/18 00:00 06/19/18 00:28 06/19/18 04:00 Temperature 98.3 F 98.0 F Pulse Rate 83 64 Respiratory Rate 18 20 18 Blood Pressure 115/56 L 90/51 L Pulse Oximetry 91 L 94 L 06/19/18 05:19 06/19/18 07:00 06/19/18 08:00 Temperature 97.6 F Pulse Rate 72 Respiratory Rate 22 Blood Pressure 95/52 L 100/56 L Pulse Oximetry 94 L 93 L Intake & Output 06/18/18 06/19/18 06/19/18 18:59 06:59 18:59 Intake Total 560 / 560 Balance 560 / 560 Weight 95.254 kg Intake: IV 200 / 200 Levaquin 500 mg Premix Inj 500 100 / 100 mg In 100 ml @ 100 mls/hr IV. SIG Q24H JAVY Rx#:[id number] Flagyl 500 MG Inj 100 ML @ 100 100 / 100 mls/hr IV.SIG Q8H JAVY Rx#: [id number] Oral 360 / 360 Other: # Voids 1 Date of Last Bowel Movement 06/18/18 # Bowel Movements 1 1 Narrative: GENERAL: This is an obese 67 year old female SKIN: No rashes, ecchymoses or lesions. Cool and dry. HEAD: Atraumatic. Normocephalic. No temporal or scalp tenderness. CARDIOVASCULAR: Regular rate and rhythm RESPIRATORY: Diminished through out with mild expiratory wheezing GASTROINTESTINAL: Abdomen soft, mild tenderness bilateral lower quadrants, nondistended. MUSCULOSKELETAL: Extremities without clubbing, cyanosis. No joint tenderness, effusion, or edema noted. No calf tenderness. Negative Homans sign bilaterally. trace bilateral lower extremities NEUROLOGICAL: Awake and alert. No focal deficits noted. Motor and sensory grossly within normal limits. 4-5 out of 5 muscle strength in all muscle groups. Normal speech. Results - Labs CBC & Chem 7: 06/19/18 05:53 06/19/18 05:53 Laboratory Results - last 24 hr 06/18/18 06/18/18 06/18/18 09:40 09:40 11:05 WBC 17.9 H RBC 4.83 Hgb 14.9 Hct 45.9 MCV 95.0 MCH 30.8 MCHC 32.4 RDW 13.7 Plt Count 165 MPV 9.1 Prelim Diff (Auto) Manual diff required Neut % (Auto) Lymph % (Auto) [place] % (Auto) Eos % (Auto) Baso % (Auto) Neut # (Auto) Lymph # (Auto) [place] # (Auto) Eos # (Auto) Baso # (Auto) WBC Differential Manual diff final Seg Neuts % (Manual) 60 Band Neuts % (Manual) 25 H Lymphocytes % (Manual) 4 L Monocytes % (Manual) 10 H Eosinophils % (Manual) 1 Abs Neuts (Manual) 15.2 H Differential Comment . Platelet Estimate Normal Platelet Morphology Clumped H RBC Morphology Normal Sodium 140 Potassium 3.8 Chloride 106 Carbon Dioxide 27.1 Anion Gap 7 BUN 11 Creatinine 0.97 Estimated GFR 57 L Random Glucose 107 H Lactic Acid 1.2 Calcium 8.4 L Total Bilirubin 0.4 AST 13 L ALT 16 Alkaline Phosphatase 63 Total Protein 7.7 Albumin 3.1 L Lipase 86 06/19/18 06/19/18 05:53 05:53 WBC 16.3 H RBC 4.44 Hgb 13.7 Hct 41.9 MCV 94.4 MCH 31.0 MCHC 32.8 RDW 13.7 Plt Count 159 MPV 9.0 Prelim Diff (Auto) Neut % (Auto) 91.4 H Lymph % (Auto) 5.4 L [place] % (Auto) 3.0 Eos % (Auto) 0.0 Baso % (Auto) 0.2 Neut # (Auto) 14.9 H Lymph # (Auto) 0.9 L [place] # (Auto) 0.5 Eos # (Auto) 0.0 Baso # (Auto) 0.0 WBC Differential . Seg Neuts % (Manual) Band Neuts % (Manual) Lymphocytes % (Manual) Monocytes % (Manual) Eosinophils % (Manual) Abs Neuts (Manual) Differential Comment Auto diff final Platelet Estimate Platelet Morphology RBC Morphology Sodium 137 Potassium 3.7 Chloride 105 Carbon Dioxide 24.7 Anion Gap 7 BUN 16 Creatinine 1.02 H Estimated GFR 54 L Random Glucose 118 H Lactic Acid Calcium 8.1 L Total Bilirubin AST ALT Alkaline Phosphatase Total Protein Albumin Lipase Microbiology 06/18/18 10:00 Nasal Wash Influenza Types A,B Antigen - Final Negative for FLU A and B antigen Infection due to influenza A or B cannot be ruled out since the antigen present in the sample may be below the detection limit of the test. - Imaging Impressions Abdomen/Pelvis CT 06/18/18 09:29 CONCLUSION: 1. Moderate sigmoid and scattered colonic diverticulosis. Diffuse mild colitis involving the descending and sigmoid colon. Overall, this appears more than expected for diverticulitis. Differential considerations including inflammatory and infectious etiologies. Ischemic etiology is felt to be less likely as the KIRSTIN and mesenteric veins are patent. 2. Large 5.5 cm fusiform infrarenal aortic aneurysm with bilateral common iliac aneurysms measuring 3.1 cm on the right and 2.1 cm on the left. 3. Ancillary findings include cholelithiasis, nonobstructive 5 mm calyceal calculus in the inferior pole the right kidney, and right renal cyst. Chest X-Ray 06/18/18 09:29 CONCLUSION: Underinflation with mild bibasilar opacity most likely representing atelectasis. Otherwise, no acute finding is identified. If symptoms persist, consider good inspiratory formal PA and lateral views of the chest. Assessment and Plan - Assessment (1) Colitis Code(s): K52.9 - Noninfective gastroenteritis and colitis, unspecified Status : Acute Plan: This is a 67-year-old female patient with past medical history which includes COPD chronically on 5 L oxygen via nasal cannula and hypertension. Patient presents to the emergency department for subjective fever, chills, body aches, abdominal pain, and diarrhea. The patient states her symptoms started this morning. The patient complains of bilateral flank pain and myalgias. She also complains of suprapubic pain with diarrhea which she describes as loose and watery. The patient denies any accompanying nausea, vomiting, or upper abdominal pain. The patient also notes subjective fever at home, chills, and body aches. The patient does have a history of COPD and is oxygen dependent at 5 L/min. The patient's primary physician is with [facility], Dr. Hernandez. The patient denies any dysuria, frequency, or urgency. Symptoms are moderate. There are no current alleviating or exacerbating factors. Colitis lower abd pain and diarrhea - Abdomen/Pelvis CT 06/18/18 09:29 1. Moderate sigmoid and scattered colonic diverticulosis. Diffuse mild colitis involving the descending and sigmoid colon. Overall, this appears more than expected for diverticulitis. Differential considerations including inflammatory and infectious etiologies. Ischemic etiology is felt to be less likely as the KIRSTIN and mesenteric veins are patent. 2. Large 5.5 cm fusiform infrarenal aortic aneurysm with bilateral common iliac aneurysms measuring 3.1 cm on the right and 2.1 cm on the left. 3. Ancillary findings include cholelithiasis, nonobstructive 5 mm calyceal calculus in the inferior pole the right kidney, and right renal cyst. - consult vascular surgery to evaluated aneurysm IV fluids continue Levaquin and Flagyl IV - add C diff - discussed with patient and daughter at bedside that patient will need GI evaluation and likely colonoscopy to further evaluate. Patient does not want colonoscopy right now as an inpatient, patient willing to follow up with GI as an outpatient after DC AAA - Abdomen/Pelvis CT 06/18/18 09:29 1. Moderate sigmoid and scattered colonic diverticulosis. Diffuse mild colitis involving the descending and sigmoid colon. Overall, this appears more than expected for diverticulitis. Differential considerations including inflammatory and infectious etiologies. Ischemic etiology is felt to be less likely as the KIRSTIN and mesenteric veins are patent. 2. Large 5.5 cm fusiform infrarenal aortic aneurysm with bilateral common iliac aneurysms measuring 3.1 cm on the right and 2.1 cm on the left. 3. Ancillary findings include cholelithiasis, nonobstructive 5 mm calyceal calculus in the inferior pole the right kidney, and right renal cyst. - consult vascular surgery to evaluated aneurysm, appreciate input - no surgical indication at this time, patient to follow up 1 week after DC COPD exacerbation - Chest X-Ray 06/18/18 09:29 - Underinflation with mild bibasilar opacity most likely representing atelectasis. Otherwise, no acute finding is identified. If symptoms persist, consider good inspiratory formal PA and lateral views of the chest. - Duonebs Q6H and as needed - continue patient's home oxygen 5L - solu medrol 125 mg IV now then 60mg Q8H HTN (hypertension) - continue patient's home amlodipine Tobacco abuse - patient counselled encouraged to abstain DVT prophylaxis with SCDs (2) Abdominal aortic aneurysm Code(s): I71.4 - Abdominal aortic aneurysm, without rupture Status: Acute (2) Abdominal aortic aneurysm Qualifiers: Presence of rupture: without rupture Qualified Code(s): I71.4 - Abdominal aortic aneurysm, without rupture
[2018-06-19] MEDS: Levofloxacin 500 mg Premix Inj 500 MG/100 ML PIGGYBACK IV.SIG SCH (14:57)
[2018-06-19] MEDS: predniSONE 20 MG Tablet PO SCH (21:26)
[2018-06-20] MEDS: Senna/Docusate Sodium 8.6/50 MG Tablet PO SCH ×2 (08:12→21:57)
[2018-06-20] MEDS: predniSONE 20 MG Tablet PO SCH ×2 (08:21→21:56)
[2018-06-20] MEDS: amLODIPine 5 MG Tablet PO SCH (08:21)
--- NOTE | 2018-06-20 10:21 | P.PNVS ---
Subjective Subjective/Hospital Course: 67/F S/P incidental finding AAA admitted for Colitis Pt reported improved diarrhea this am w/ less frequent episodes Pt denied Abdominal/Back pain Objective Vital Signs / I&O: Vital Signs 06/19/18 10:14 06/19/18 12:00 06/19/18 15:33 Temperature 97.6 F Pulse Rate 80 73 75 Respiratory Rate 12 16 15 Blood Pressure 110/62 Pulse Oximetry 92 L 93 L 06/19/18 16:00 06/19/18 20:00 06/19/18 22:07 Temperature 97.7 F 97.8 F Pulse Rate 86 91 H 73 Respiratory Rate 16 17 18 Blood Pressure 141/66 H 118/66 Pulse Oximetry 92 L 93 L 95 06/20/18 00:00 06/20/18 04:50 06/20/18 08:00 Temperature 97.7 F 97.6 F Pulse Rate 80 65 66 Respiratory Rate 19 18 18 Blood Pressure 111/58 L 126/71 Pulse Oximetry 96 97 06/20/18 08:58 Temperature Pulse Rate 63 Respiratory Rate 15 Blood Pressure Pulse Oximetry 97 Intake & Output 06/19/18 06/20/18 06/20/18 18:59 06:59 18:59 Intake Total 1680 / 1680 480 / 480 Balance 1680 / 1680 480 / 480 Intake: IV 1200 / 1200 1/2 Normal Saline Inj 1,000 ML 1000 / 1000 @ 75 mls/hr IV.CONT .[id number] JAVY Rx#:[id number] Levaquin 500 mg Premix Inj 500 100 / 100 mg In 100 ml @ 100 mls/hr IV. SIG Q24H JAVY Rx#:[id number] Flagyl 500 MG Inj 100 ML @ 100 100 / 100 mls/hr IV.SIG Q8H JAVY Rx#: [id number] Oral 480 / 480 480 / 480 Other: # Voids 2 2 Date of Last Bowel Movement 06/19/18 06/19/18 # Bowel Movements 3 Physical Exam: alert and oriented W/o abdominal/back pain Laboratory Results - last 24 hr 06/19/18 09:56 Stl C.difficile Tox PCR Positive H St C. diff Tox Epid 027 Positive H Impressions Abdomen/Pelvis CT 06/18/18 09:29 CONCLUSION: 1. Moderate sigmoid and scattered colonic diverticulosis. Diffuse mild colitis involving the descending and sigmoid colon. Overall, this appears more than expected for diverticulitis. Differential considerations including inflammatory and infectious etiologies. Ischemic etiology is felt to be less likely as the KIRSTIN and mesenteric veins are patent. 2. Large 5.5 cm fusiform infrarenal aortic aneurysm with bilateral common iliac aneurysms measuring 3.1 cm on the right and 2.1 cm on the left. 3. Ancillary findings include cholelithiasis, nonobstructive 5 mm calyceal calculus in the inferior pole the right kidney, and right renal cyst. Assessment and Plan - Assessment (1) Abdominal aortic aneurysm Code(s): I71.4 - Abdominal aortic aneurysm, without rupture Status: Acute - Plan 67/F presents w/ a 5.5 cm intact, asymptomatic AAA. Plan Continue therapy for colitis Arranged out pt f/u in 2W With a CTA C/A/P Planning out pt EVAR, given recent colitis dx Discussed plan w/ pt and daughter Pt agrees w/ plan Questions answered Desirae Tillman NP [facility] [phone] (1) Abdominal aortic aneurysm Qualifiers: Presence of rupture: without rupture Qualified Code(s): I71.4 - Abdominal aortic aneurysm, without rupture
--- NOTE | 2018-06-20 10:52 | P.PNIM ---
Subjective Interval history: Patient reports 3 stools last night and 1 stool so far this AM patient describes stool as soft no longer liquid Physical Exam Vital signs: Vital Signs 06/19/18 12:00 06/19/18 15:33 06/19/18 16:00 Temperature 97.6 F 97.7 F Pulse Rate 73 75 86 Respiratory Rate 16 15 16 Blood Pressure 110/62 141/66 H Pulse Oximetry 93 L 92 L 06/19/18 20:00 06/19/18 22:07 06/20/18 00:00 Temperature 97.8 F 97.7 F Pulse Rate 91 H 73 80 Respiratory Rate 17 18 19 Blood Pressure 118/66 111/58 L Pulse Oximetry 93 L 95 96 06/20/18 04:50 06/20/18 08:00 06/20/18 08:58 Temperature 97.6 F Pulse Rate 65 66 63 Respiratory Rate 18 18 15 Blood Pressure 126/71 Pulse Oximetry 97 97 Intake & Output 06/19/18 06/20/18 06/20/18 18:59 06:59 18:59 Intake Total 1680 / 1680 480 / 480 Balance 1680 / 1680 480 / 480 Intake: IV 1200 / 1200 1/2 Normal Saline Inj 1,000 ML 1000 / 1000 @ 75 mls/hr IV.CONT .[id number] JAVY Rx#:[id number] Levaquin 500 mg Premix Inj 500 100 / 100 mg In 100 ml @ 100 mls/hr IV. SIG Q24H JAVY Rx#:[id number] Flagyl 500 MG Inj 100 ML @ 100 100 / 100 mls/hr IV.SIG Q8H JAVY Rx#: [id number] Oral 480 / 480 480 / 480 Other: # Voids 2 2 Date of Last Bowel Movement 06/19/18 06/19/18 # Bowel Movements 3 Narrative: GENERAL: This is an obese 67 year old female SKIN: No rashes, ecchymoses or lesions. Cool and dry. HEAD: Atraumatic. Normocephalic. No temporal or scalp tenderness. CARDIOVASCULAR: Regular rate and rhythm RESPIRATORY: Diminished through out with mild expiratory wheezing GASTROINTESTINAL: Abdomen soft, non-tender, nondistended. MUSCULOSKELETAL: Extremities without clubbing, cyanosis. No joint tenderness, effusion, or edema noted. No calf tenderness. Negative Homans sign bilaterally. trace bilateral lower extremities NEUROLOGICAL: Awake and alert. No focal deficits noted. Motor and sensory grossly within normal limits. 4-5 out of 5 muscle strength in all muscle groups. Normal speech. Results - Labs CBC & Chem 7: 06/19/18 05:53 06/19/18 05:53 Laboratory Results - last 24 hr 06/19/18 09:56 Stl C.difficile Tox PCR Positive H St C. diff Tox Epid 027 Positive H Assessment and Plan - Assessment (1) Colitis Code(s): K52.9 - Noninfective gastroenteritis and colitis, unspecified Status : Acute Plan: This is a 67-year-old female patient with past medical history which includes COPD chronically on 5 L oxygen via nasal cannula and hypertension. Patient presents to the emergency department for subjective fever, chills, body aches, abdominal pain, and diarrhea. The patient states her symptoms started this morning. The patient complains of bilateral flank pain and myalgias. She also complains of suprapubic pain with diarrhea which she describes as loose and watery. The patient denies any accompanying nausea, vomiting, or upper abdominal pain. The patient also notes subjective fever at home, chills, and body aches. The patient does have a history of COPD and is oxygen dependent at 5 L/min. The patient's primary physician is with [facility], Dr. Hernandez. The patient denies any dysuria, frequency, or urgency. Symptoms are moderate. There are no current alleviating or exacerbating factors. Colitis lower abd pain and diarrhea - Abdomen/Pelvis CT 06/18/18 09:29 1. Moderate sigmoid and scattered colonic diverticulosis. Diffuse mild colitis involving the descending and sigmoid colon. Overall, this appears more than expected for diverticulitis. Differential considerations including inflammatory and infectious etiologies. Ischemic etiology is felt to be less likely as the KIRSTIN and mesenteric veins are patent. 2. Large 5.5 cm fusiform infrarenal aortic aneurysm with bilateral common iliac aneurysms measuring 3.1 cm on the right and 2.1 cm on the left. 3. Ancillary findings include cholelithiasis, nonobstructive 5 mm calyceal calculus in the inferior pole the right kidney, and right renal cyst. - consult vascular surgery to evaluated aneurysm IV fluids DC Levaquin and Flagyl IV -C diff positive and 027 positive - started on Vancomycin liquid - discussed with patient and daughter at bedside that patient will need GI evaluation and likely colonoscopy to further evaluate. Patient does not want colonoscopy right now as an inpatient, patient willing to follow up with GI as an outpatient after DC AAA - Abdomen/Pelvis CT 06/18/18 09:29 1. Moderate sigmoid and scattered colonic diverticulosis. Diffuse mild colitis involving the descending and sigmoid colon. Overall, this appears more than expected for diverticulitis. Differential considerations including inflammatory and infectious etiologies. Ischemic etiology is felt to be less likely as the KIRSTIN and mesenteric veins are patent. 2. Large 5.5 cm fusiform infrarenal aortic aneurysm with bilateral common iliac aneurysms measuring 3.1 cm on the right and 2.1 cm on the left. 3. Ancillary findings include cholelithiasis, nonobstructive 5 mm calyceal calculus in the inferior pole the right kidney, and right renal cyst. - consult vascular surgery to evaluated aneurysm, appreciate input - no surgical indication at this time, patient to follow up 1 week after DC COPD exacerbation - Chest X-Ray 06/18/18 09:29 - Underinflation with mild bibasilar opacity most likely representing atelectasis. Otherwise, no acute finding is identified. If symptoms persist, consider good inspiratory formal PA and lateral views of the chest. - Duonebs Q6H and as needed - continue patient's home oxygen 5L - solu medrol 125 mg IV now then 60mg Q8H HTN (hypertension) - continue patient's home amlodipine Tobacco abuse - patient counselled encouraged to abstain DVT prophylaxis with SCDs (2) Abdominal aortic aneurysm Code(s): I71.4 - Abdominal aortic aneurysm, without rupture Status: Acute (2) Abdominal aortic aneurysm Qualifiers: Presence of rupture: without rupture Qualified Code(s): I71.4 - Abdominal aortic aneurysm, without rupture
--- NOTE | 2018-06-20 11:01 | P.DS ---
<Kathy Rowley W - Last Filed: 06/20/18 10:52> Date of admission: 06/18/18 14:03 Primary care physician: UNKNOWN Attending physician on discharge: Mode Tolention Anticipated date of discharge: 06/21/18 Brief History from admission: This is a 67-year-old female patient with past medical history which includes COPD chronically on 5 L oxygen via nasal cannula and hypertension. Patient presents to the emergency department for subjective fever, chills, body aches, abdominal pain, and diarrhea. The patient states her symptoms started this morning. The patient complains of bilateral flank pain and myalgias. She also complains of suprapubic pain with diarrhea which she describes as loose and watery. The patient denies any accompanying nausea, vomiting, or upper abdominal pain. The patient also notes subjective fever at home, chills, and body aches. The patient does have a history of COPD and is oxygen dependent at 5 L/min. The patient's primary physician is with [facility], Dr. Hernandez. The patient denies any dysuria, frequency, or urgency. Symptoms are moderate. There are no current alleviating or exacerbating factors. Past Medical History COPD on 5L oxygen via NC and HTN Past Surgical History tubal ligation Family History reports HTN runs in her family Social History Smoked one pack per day from 1985 to 2017 has cut back to 2-3 cigarettes per day Denies EtOH use. Denies illicit drug use DS: Diagnosis - Discharge Diagnosis (1) Colitis Status: Acute (2) Abdominal aortic aneurysm Status: Acute (3) C. difficile colitis Status: Acute DS: Medications - Discharge Medications Prescriptions: prednisone See Taper PO DIRECTED #9 tab vancomycin 125 mg PO QID 13 Days #130 ml DS: Summary Hospital Course: This is a 67-year-old female patient with past medical history which includes COPD chronically on 5 L oxygen via nasal cannula and hypertension. Patient presents to the emergency department for subjective fever, chills, body aches, abdominal pain, and diarrhea. The patient states her symptoms started this morning. The patient complains of bilateral flank pain and myalgias. She also complains of suprapubic pain with diarrhea which she describes as loose and watery. The patient denies any accompanying nausea, vomiting, or upper abdominal pain. The patient also notes subjective fever at home, chills, and body aches. The patient does have a history of COPD and is oxygen dependent at 5 L/min. The patient's primary physician is with [facility], Dr. Hernandez. The patient denies any dysuria, frequency, or urgency. Symptoms are moderate. There are no current alleviating or exacerbating factors. C Diff Colitis lower abd pain and diarrhea - Abdomen/Pelvis CT 06/18/18 09:29 1. Moderate sigmoid and scattered colonic diverticulosis. Diffuse mild colitis involving the descending and sigmoid colon. Overall, this appears more than expected for diverticulitis. Differential considerations including inflammatory and infectious etiologies. Ischemic etiology is felt to be less likely as the KIRSTIN and mesenteric veins are patent. 2. Large 5.5 cm fusiform infrarenal aortic aneurysm with bilateral common iliac aneurysms measuring 3.1 cm on the right and 2.1 cm on the left. 3. Ancillary findings include cholelithiasis, nonobstructive 5 mm calyceal calculus in the inferior pole the right kidney, and right renal cyst. - consult vascular surgery to evaluated aneurysm IV fluids DC Levaquin and Flagyl IV - C diff positive 027 positive started vancomycin PO - discussed with patient and daughter at bedside that patient will need GI evaluation and likely colonoscopy to further evaluate. Patient does not want colonoscopy right now as an inpatient, patient willing to follow up with GI as an outpatient after DC AAA - Abdomen/Pelvis CT 06/18/18 09:29 1. Moderate sigmoid and scattered colonic diverticulosis. Diffuse mild colitis involving the descending and sigmoid colon. Overall, this appears more than expected for diverticulitis. Differential considerations including inflammatory and infectious etiologies. Ischemic etiology is felt to be less likely as the KIRSTIN and mesenteric veins are patent. 2. Large 5.5 cm fusiform infrarenal aortic aneurysm with bilateral common iliac aneurysms measuring 3.1 cm on the right and 2.1 cm on the left. 3. Ancillary findings include cholelithiasis, nonobstructive 5 mm calyceal calculus in the inferior pole the right kidney, and right renal cyst. - consult vascular surgery to evaluated aneurysm, appreciate input - no surgical indication at this time, patient to follow up 1 week after DC COPD exacerbation - Chest X-Ray 06/18/18 09:29 - Underinflation with mild bibasilar opacity most likely representing atelectasis. Otherwise, no acute finding is identified. If symptoms persist, consider good inspiratory formal PA and lateral views of the chest. - Duonebs Q6H and as needed - continue patient's home oxygen 5L - solu medrol 125 mg IV now then 60mg Q8H HTN (hypertension) - continue patient's home amlodipine Tobacco abuse - patient counselled encouraged to abstain DVT prophylaxis with SCDs - Time Spent with Patient Total time spent providing and/or coordinating discharge services: Greater than 30 minutes - Quality: VTE Deep Vein Thrombosis/Pulmonary Embolism Present on Admission: No Exam Vital signs: Vital Signs 06/19/18 12:00 06/19/18 15:33 06/19/18 16:00 Temperature 97.6 F 97.7 F Pulse Rate 73 75 86 Respiratory Rate 16 15 16 Blood Pressure 110/62 141/66 H Pulse Oximetry 93 L 92 L 06/19/18 20:00 06/19/18 22:07 06/20/18 00:00 Temperature 97.8 F 97.7 F Pulse Rate 91 H 73 80 Respiratory Rate 17 18 19 Blood Pressure 118/66 111/58 L Pulse Oximetry 93 L 95 96 06/20/18 04:50 06/20/18 08:00 06/20/18 08:58 Temperature 97.6 F Pulse Rate 65 66 63 Respiratory Rate 18 18 15 Blood Pressure 126/71 Pulse Oximetry 97 97 Intake & Output 06/19/18 06/20/18 06/20/18 18:59 06:59 18:59 Intake Total 1680 / 1680 480 / 480 Balance 1680 / 1680 480 / 480 Intake: IV 1200 / 1200 1/2 Normal Saline Inj 1,000 ML 1000 / 1000 @ 75 mls/hr IV.CONT .[id number] JAVY Rx#:[id number] Levaquin 500 mg Premix Inj 500 100 / 100 mg In 100 ml @ 100 mls/hr IV. SIG Q24H JAVY Rx#:[id number] Flagyl 500 MG Inj 100 ML @ 100 100 / 100 mls/hr IV.SIG Q8H JAVY Rx#: [id number] Oral 480 / 480 480 / 480 Other: # Voids 2 2 Date of Last Bowel Movement 06/19/18 06/19/18 # Bowel Movements 3 Narrative: GENERAL: This is an obese 67 year old female SKIN: No rashes, ecchymoses or lesions. Cool and dry. HEAD: Atraumatic. Normocephalic. No temporal or scalp tenderness. CARDIOVASCULAR: Regular rate and rhythm RESPIRATORY: Diminished through out with mild expiratory wheezing GASTROINTESTINAL: Abdomen soft, non-tender, nondistended. MUSCULOSKELETAL: Extremities without clubbing, cyanosis. No joint tenderness, effusion, or edema noted. No calf tenderness. Negative Homans sign bilaterally. trace bilateral lower extremities NEUROLOGICAL: Awake and alert. No focal deficits noted. Motor and sensory grossly within normal limits. 4-5 out of 5 muscle strength in all muscle groups. Normal speech Results Procedures completed during hospitalization: none Labs on day of discharge: Labs from last 24 hours 06/19/18 09:56 Stl C.difficile Tox PCR Positive H St C. diff Tox Epid 027 Positive H - Impressions ITS Impressions Abdomen/Pelvis CT 06/18/18 09:29 CONCLUSION: 1. Moderate sigmoid and scattered colonic diverticulosis. Diffuse mild colitis involving the descending and sigmoid colon. Overall, this appears more than expected for diverticulitis. Differential considerations including inflammatory and infectious etiologies. Ischemic etiology is felt to be less likely as the KIRSTIN and mesenteric veins are patent. 2. Large 5.5 cm fusiform infrarenal aortic aneurysm with bilateral common iliac aneurysms measuring 3.1 cm on the right and 2.1 cm on the left. 3. Ancillary findings include cholelithiasis, nonobstructive 5 mm calyceal calculus in the inferior pole the right kidney, and right renal cyst. Chest X-Ray 06/18/18 09:29 CONCLUSION: Underinflation with mild bibasilar opacity most likely representing atelectasis. Otherwise, no acute finding is identified. If symptoms persist, consider good inspiratory formal PA and lateral views of the chest. <Mode Tolentino - Last Filed: 06/21/18 09:36> Date of admission: 06/18/18 14:03 Primary care physician: UNKNOWN DS: Summary - Time Spent with Patient Total time spent providing and/or coordinating discharge services: Exam Vital signs: Vital Signs 06/20/18 12:00 06/20/18 16:00 06/20/18 16:17 Temperature 97.7 F 97.6 F Pulse Rate 62 58 L 64 Respiratory Rate 16 16 26 H Blood Pressure 108/59 L 112/61 Pulse Oximetry 96 97 06/20/18 20:00 06/20/18 22:18 06/21/18 00:00 Temperature 97.7 F 97.4 F L Pulse Rate 59 L 65 62 Respiratory Rate 17 19 19 Blood Pressure 119/94 H 108/60 Pulse Oximetry 98 98 97 06/21/18 04:10 06/21/18 08:00 Temperature 98.2 F Pulse Rate 62 77 Respiratory Rate 17 18 Blood Pressure 138/74 Pulse Oximetry 97 88 L Intake & Output 06/20/18 06/21/18 06/21/18 18:59 06:59 18:59 Intake Total 1800 / 1800 900 / 900 Balance 1800 / 1800 900 / 900 Weight 95.3 kg Intake: Oral 1800 / 1800 900 / 900 Other: # Voids 5 3 Date of Last Bowel Movement 06/20/18 06/20/18 # Bowel Movements 4 3 Results - Impressions ITS Impressions Abdomen/Pelvis CT 06/18/18 09:29 CONCLUSION: 1. Moderate sigmoid and scattered colonic diverticulosis. Diffuse mild colitis involving the descending and sigmoid colon. Overall, this appears more than expected for diverticulitis. Differential considerations including inflammatory and infectious etiologies. Ischemic etiology is felt to be less likely as the KIRSTIN and mesenteric veins are patent. 2. Large 5.5 cm fusiform infrarenal aortic aneurysm with bilateral common iliac aneurysms measuring 3.1 cm on the right and 2.1 cm on the left. 3. Ancillary findings include cholelithiasis, nonobstructive 5 mm calyceal calculus in the inferior pole the right kidney, and right renal cyst. Chest X-Ray 06/18/18 09:29 CONCLUSION: Underinflation with mild bibasilar opacity most likely representing atelectasis. Otherwise, no acute finding is identified. If symptoms persist, consider good inspiratory formal PA and lateral views of the chest. Discharge Plan - Discharge Order Discharge Orders: Discharge Order (Routine); Ordered 06/21/18 Ordered By: Kathy Rowley - Discharge Details Anticipated Discharge Date: 06/21/18 - Physicians Team Primary Care Provider: UNKNOWN, Attending Provider: Chun Gunn Other Providers: Yan Oliver MD ; [facility]
[2018-06-21] MEDS: amLODIPine 5 MG Tablet PO SCH (09:35)
[2018-06-21] MEDS: predniSONE 20 MG Tablet PO SCH (09:35)
[2018-06-21] MEDS: Senna/Docusate Sodium 8.6/50 MG Tablet PO SCH (09:35)
== END 2018-06-21 10:47 | disposition home or self-care (01) ==
LOC: NEPE 09:00 → NEDA 14:03 → N07 16:34
PROVIDERS: ADMIT Hospitalist; ATTEND Hospitalist

== ENCOUNTER 2018-07-18 08:13 | Inpatient (IN) ==
[2018-07-18] MEDS ORDERED: Protamine Sulfate Inj 50 MG/5 ML Vial ONE (08:52)
[2018-07-18] MEDS ORDERED: Heparin/NS PF Inj 500 ML ONE ×2 (08:53→11:11)
[2018-07-18] MEDS ORDERED: Heparin 10,000 UNITS/10 ML Vial (for IV use) ONE ×2 (08:53→11:11)
[2018-07-18] MEDS ORDERED: Sodium Chlor 0.9% Inj 500 ML IV.CONT ONE (09:00)
[2018-07-18] MEDS ORDERED: Chlorhexidine Gluconate 2% 1 Pack (2 Cloths) TOPICAL ONE (09:00)
[2018-07-18] MEDS ORDERED: Metoprolol Tartrate 25 MG Tablet PO ONE (09:00)
--- NOTE | 2018-07-18 09:32 | P.HPVS ---
History of Present Illness Chief Complaint: AAA and R BAKARI aneurysm History of Present Illness: 67 yo female with incidentally found 6 cm AAA - no abdominal pain, no new back pain. Presents for elective repair. No changes in health that would preclude OR. - Inpatient Certification If this patient has been admitted as an Inpatient: I certify that the inpatient services were ordered in accordance with Medicare regulations governing the order. This includes certification that hospital inpatient services are reasonable and necessary and in the case of services not specified as inpatient-only under 42 CFR 419.22(n), that they are appropriately provided as inpatient services in accordance to with the 2-midnight benchmark under 43 CFR 412.3(e) Estimated Total Length of Stay (Days): 2 Plans for Post Hospital Care: Home Review of Systems Constitutional: Denies chills, Denies fatigue Cardiovascular: Reports shortness of breath with activity, Denies chest pain Respiratory: Reports shortness of breath with activity PMFSH - History History Provided By: Patient - Medical History Medical History: Medical History (Last Reviewed 07/18/18 @ 09:27 by Yan Oliver MD) COPD (chronic obstructive pulmonary disease) Depression History of Clostridium difficile infection Hypertension - Surgical History Surgical History: Surgical History (Last Reviewed 07/18/18 @ 09:27 by Yan Oliver MD) History of tubal ligation - Tobacco History Second Hand Smoke Exposure: No Tobacco Use In Past 30 Days: Yes Smoking Status: Former smoker Tobacco Type: Cigarettes - Alcohol History How Often Do You Have a Drink Containing Alcohol: Never - Substance Use History Substance History: No History of Abuse - Travel History Recent Travel in the [place] Within the Last 8 Weeks: No Recent Travel Out of the Country Within the Last 8 Weeks: No Medications and Allergies Active Medications: Active Medications Lactated Ringer's (Lr 1000 Ml Inj) 1,000 mls @ 30 mls/hr IV.CONT .Q24H ONE Stop: 07/19/18 08:59 Last Admin: 07/18/18 09:11 Dose: 30 mls/hr Sodium Chloride (Ns Inj) 500 mls @ 30 mls/hr IV.CONT .[id number] ONE Stop: 07/19/18 01:39 Last Admin: 07/18/18 09:11 Dose: Not Given Allergies Allergy/AdvReac Type Severity Reaction Status Date / Time penicillin G Allergy Intermediate yeast Verified 07/18/18 08:55 infection Home Medications Medication Instructions Recorded Confirmed Type amlodipine 5 mg PO DAILY 06/18/18 07/18/18 History aspirin 81 mg PO DAILY 06/18/18 07/12/18 History ipratropium-albuterol 3 ml INHALATION QID PRN 06/18/18 07/18/18 History losartan 50 mg PO DAILY 06/18/18 07/18/18 History potassium chloride [K-Tab] 10 meq PO BID 06/18/18 07/18/18 History ascorbic acid (vitamin C) [Vitamin 500 mg PO DAILY 07/12/18 07/18/18 History C] calcium carbonate [Calcium 500] 500 mg PO DAILY 07/12/18 07/18/18 History cholecalciferol (vitamin D3) 1,000 unit PO DAILY 07/12/18 07/18/18 History [Vitamin D3] furosemide 20 mg PO BID 07/12/18 07/18/18 History vitamin E 400 unit PO DAILY 07/12/18 07/18/18 History Physical Exam Vital Signs / I&O: Vital Signs 07/18/18 08:59 Temperature 97.9 F Pulse Rate 80 Respiratory Rate 20 Blood Pressure 114/68 Pulse Oximetry 92 L Intake & Output 07/17/18 07/18/18 07/18/18 18:59 06:59 18:59 Weight 94.6 kg Other: Weight On Admission 94.6 kg Neuro: alert, oriented, no distress, wearing oxygen HEENT: NC/AT Neck: no JVD Heart: reg rate, no M Lungs: distant BS bilaterally Abdomen: nontender Extremities: no CCE Hct 40 plt 151 INR 1.0 cr 0.9 Caprini VTE Risk Assessment Caprini VTE Risk Assessment: No/Low Risk (score <= 1) (intra-operative heparin) Caprini Risk Assessment Model: Point Value = 1 Point Value = 2 Point Value = 3 Point Value = 5 Age 41-60 Minor surgery BMI > 25 kg/m2 Swollen legs Varicose veins or History of unexplained or recurrent spontaneous Oral contraceptives or hormone replacement Sepsis (< 1 month) Serious lung disease, including pneumonia (< 1 month) Abnormal pulmonary function Acute myocardial infarction Congestive heart failure (< 1 month) History of inflammatory bowel disease Medical patient at bed rest Age 61-74 Arthroscopic surgery Major open surgery (> 45 min) Laparoscopic surgery (> 45 min) Malignancy Confined to bed (> 72 hours) Immobilizing plaster cast Central venous access Age >= 75 History of VTE Family history of VTE Factor V Leiden Prothrombin [id number] Lupus anticoagulant Anticardiolipin antibodies Elevated serum homocysteine Heparin-induced thrombocytopenia Other congenital or acquired thrombophilia Stroke (< 1 month) Elective arthroplasty Hip, pelvis, or leg fracture Acute spinal cord injury (< 1 month) Prophylaxis Regimen: Total Risk Factor Score Risk Level Prophylaxis Regimen 0-1 Low Early ambulation 2 Moderate Order ONE of the following: *Sequential Compression Device (SCD) *Heparin 5000 units SQ BID 3-4 Higher Order ONE of the following medications: *Heparin 5000 units SQ TID *Enoxaparin/Lovenox 40 mg SQ daily (WT < 150 kg, CrCl > 30 mL/min) *Enoxaparin/Lovenox 30 mg SQ daily (WT < 150 kg, CrCl > 10-29 mL/min) *Enoxaparin/Lovenox 30 mg SQ BID (WT < 150 kg, CrCl > 30 mL/min) AND/OR *Sequential Compression Device (SCD) 5 or more Highest Order ONE of the following medications: *Heparin 5000 units SQ TID (Preferred with Epidurals) *Enoxaparin/Lovenox 40 mg SQ daily (WT < 150 kg, CrCl > 30 mL/min) *Enoxaparin/Lovenox 30 mg SQ daily (WT < 150 kg, CrCl > 10-29 mL/min) *Enoxaparin/Lovenox 30 mg SQ BID (WT < 150 kg, CrCl > 30 mL/min) AND *Sequential Compression Device (SCD) Assessment and Plan - Assessment (1) Abdominal aortic aneurysm Code(s): I71.4 - Abdominal aortic aneurysm, without rupture Status: Acute - Plan AAA and R BAKARI aneurysm. Appears amenable to endovascular repair. Explained procedure again to patient. To OR. Daughter: [phone]
--- NOTE | 2018-07-18 13:03 | P.OP ---
- Preoperative Diagnosis (1) Iliac artery aneurysm, right (2) Abdominal aortic aneurysm - Postoperative Diagnosis (1) Abdominal aortic aneurysm (2) Iliac artery aneurysm, right Date of procedure: 07/18/18 Procedure: 1. EVAR with 2 docking limbs 2. R iliac branched device with limbs into R hypogastric artery and R EIA 3. B QUALITY ASSURANCE INTERN [employer]close Implants: 1. EVAR main body 2. L iliac limb 3. R iliac limb 4. R iliac branch device 5. R hypogastric limb Surgeon: Yan Oliver MD Used [employer] Make Ready Mechanic: Gale Wasserman Estimated blood loss (mL): 100 IV fluids (mL): 2,000 Urine output (mL): 150 Pathology: none sent Operation and Findings: successful exclusion of AAA and R BAKARI aneurysm maintenance of perfusion of B renal arteries, B hypogastric arteries + Doppler signals B LE at conclusion of case
[2018-07-18] MEDS ORDERED: Bisacodyl 10 MG Supp RECTAL PRN (13:04)
[2018-07-18] MEDS ORDERED: fentaNYL Citrate Inj 100 MCG/2 ML Ampul ONE ×2 (13:21)
[2018-07-18] MEDS ORDERED: *Meperidine Inj 25 MG/ML Vial PERIprocedural Use ONLY ONE (13:23)
[2018-07-18] MEDS ORDERED: *Ondansetron Inj 4 MG/2 ML Vial PERIprocedural Use ONLY ONE (13:28)
--- NOTE | 2018-07-18 13:57 | XR ---
EXAM DATE: 07/18/2018 1:46 PM EDT AGE/SEX: 67 years / Female INDICATIONS: Post abdominal aneurysm repair. CLINICAL DATA: This is the patient's initial encounter. Patient reports that signs and symptoms have been present for 1 day and indicates a pain score of Nonresponsive. MEDICAL/SURGICAL HISTORY: Chronic obstructive pulmonary disease. None. COMPARISON: No prior exams available for comparison. FINDINGS: The patient has an aortic stent graft in place. There is a Benito catheter in place. Contrast in both renal collecting systems. The bowel gas pattern is unremarkable. Aortic stent graft in place. Bowel gas pattern is normal. CONCLUSION: Unremarkable bowel gas pattern Electronically signed by: Chace Degroot MD 07/18/2018 1:55 PM EDT
[2018-07-18 14:31] LABS: Baso # (Auto) 0.1 th/mm3 (0.0-0.2); Baso % (Auto) 0.7 % (0.0-2.0); Eos # (Auto) 0.2 th/mm3 (0.0-0.4); Eos % (Auto) 2.4 % (0.0-4.0); Hematocrit 32.6 % (35.0-46.0); Hemoglobin 10.9 gm/dL (11.6-15.3); Lymph # (Auto) 1.5 th/mm3 (1.0-4.8); Lymph % (Auto) 15.6 % (9.0-44.0); Mean Corpuscular HGB Conc 33.5 % (32.0-36.0); Mean Corpuscular Hemoglobin 31.5 pg (27.0-34.0); Mean Corpuscular Volume 93.9 fL (80.0-100.0); Mean Platelet Volume 8.3 fL (7.0-11.0); Mono # (Auto) 1.1 th/mm3 (0.0-0.9); Mono % (Auto) 11.5 % (0.0-8.0); Neut # (Auto) 6.8 th/mm3 (1.8-7.7); Neut % (Auto) 69.8 % (16.0-70.0); Platelet Count 203 th/mm3 (150-450); Red Blood Count 3.47 mil/mm3 (4.00-5.30); Red Cell Distribution Width 13.7 % (11.6-17.2); White Blood Count 9.8 th/mm3 (4.0-11.0)
--- NOTE | 2018-07-18 20:52 | MP ---
cc: Yan Olvier MD DATE OF OPERATION: 07/18/2018 PREOPERATIVE DIAGNOSES: 1. Abdominal aortic aneurysm. 2. Right common iliac artery aneurysm. POSTOPERATIVE DIAGNOSIS: 1. Abdominal aortic aneurysm. 2. Right common iliac artery aneurysm. PROCEDURE: 1. Endovascular abdominal aortic aneurysm repair with a bifurcated device and 2 docking limbs. 2. Right common iliac artery aneurysm repair with a branched iliac device and stent into the hypogastric artery. 3. Right common femoral artery Perclose (16-Cypriot sheath). 4. Left common femoral artery Perclose (18-Cypriot sheath). ATTENDING SURGEON: Yan Oliver MD BARREL LATHE OPERATOR SURGEON: Gale Wasserman. ANESTHESIA: General. INDICATIONS: Ms. Madison is a 67-year-old female with a 6 cm abdominal aortic aneurysm and a right common iliac artery aneurysm. After a thorough discussion was had with the patient and intensive review of her anatomy, she was offered a branched iliac device as well as an endovascular abdominal aortic aneurysm repair. DESCRIPTION OF PROCEDURE: Informed consent was obtained from the patient. She was taken to the operating room and placed supine on the operating table. An appropriate timeout was taken to ensure the patient's identity, operative site and planned procedure. The administration of 2 grams of Ancef was initiated prior to skin incision and will be discontinued after single preoperative dose. Everyone in the room agreed with the timeout and we proceeded. She was prepped from her nipples to her knees. A 21-gauge micropuncture needle was used to access both common femoral arteries. This was exchanged using a sounder to an 8-Cypriot micropuncture sheath, through which 0.035 Storq wire was introduced. The micropuncture sheaths were exchanged for 5-Cypriot sheath, which was used to dilate the skin and subcutaneous tract and arteriotomy. Two Perclose ProGlide sutures were inserted into each groin and tagged but not tied down. These will be used later. Then 8-Cypriot sheaths were placed in both placed in both groins and at this time, the patient was systemically heparinized. Throughout the remainder of the case, the ACT was adjusted to be greater than 250 with additional boluses of heparin. The Storq wires and then catheters followed by Lunderquist wires were inserted up both common femoral arteries and with the Lunderquist stiff wires in place, the 8-Cypriot sheaths were removed and Gutierrez dilators were used to dilate the skin, subcutaneous tract and arteriotomy up to 16-Cypriot on the right and 18-Cypriot on the left. A Cypriot and an 18-Cypriot sheath were placed in the right and left, respectively. With these sheaths in place, a Glidewire was placed through a separate puncture site and the 16-Cypriot sheath on the right and up the 18-Cypriot sheath on the left. A snare catheter was then placed. The Glidewire was snared from the right hand side to the left hand side and extracted out the left hand sheath providing transfemoral access. An angiogram was performed, which located the right hypogastric artery and the iliac branch device was then loaded up through the right hand side. This was an SANDY 23 x 10 x 10, and it was introduced over dual wire access with the main device up the Lunderquist wire and the branched device up the Glidewire up through the right hand side 16-Cypriot sheath. The device was positioned fluoroscopically and deployed down to the gate. A 12-Cypriot sheath was placed through the 16-Cypriot sheath on the left-hand aspect of the Glidewire and using transfemoral Glidewire access the 12 and 16 sheaths were then intubated into the proximal aspect of the SANDY device. A second Glidewire was then advanced through a 12-Cypriot sheath and with an angled catheter we were able to navigate into the hypogastric branch and in fact into the hypogastric artery itself. The catheter was advanced and the Glidewire was exchanged for an Amplatz wire and the 12-Cypriot sheath was advanced into the hypogastric arm itself. An angiogram was performed of the hypogastric artery and the hypogastric limb, which was a 16 x 14.5 x 7 was then introduced up the left hand side, tracked over the aortic flow divider into the hypogastric limb and deployed with sufficient overlap. It was ballooned proximally and distally with a 12 mm angioplasty balloon over the Amplatz wire and the completion angiogram showed no endoleak. The remainder of the SANDY device into the right external iliac artery was deployed. We then advanced a marker flush catheter up the right hand side of the aorta and up the left hand side, the transfemoral wire access was removed as well as the Amplatz wire. A Storq wire was then advanced from the left hand 18-Cypriot sheath up to the thoracic aorta and this was exchanged for a Lunderquist wire and through the 18-Cypriot sheath, the main device was inserted, which was an Excluder 28 x 14 x 12. The device was positioned so that the limbs were intentionally crossed and an interval angiogram was performed, which located the renal artery. The device was deployed down to the exposure of the contralateral gate and then a Roadrunner wire was placed through the right hand side. Marker Flush catheter and the marker flush catheter was exchanged for a Cobra catheter, followed by Glen and ultimately a wasserman's hook catheter, which was used to catheterize the contralateral gate. This appeared fluoroscopically to be in the contralateral gate and then the catheter was advanced up to the thoracic aorta and the wire was exchanged for a Lunderquist wire and a Q50 balloon was used to balloon the contralateral gate thereby confirming we were indeed in the gate itself. The interval angiogram was performed, which depicted the renal arteries and the device was deployed. The top of the device was deployed and unsecured immediately caudal to the renal arteries. An angiogram was then performed and we determined the distance connecting the main device, which was partially deployed to the SANDY device in the right common iliac artery and this was bridged with a 23 x 12 limb. This appeared to have sufficient overlap of both the main device in the aorta and the IVC device in the iliac artery. The marker catheter was then withdrawn and placed up the left hand side. An angiogram was performed, which located the left hypogastric artery and the left iliac limb was then chosen and it was a 20 x 11.5 limb and it was inserted with sufficient overlap of the main device in the aorta and deployed without difficulty. The Q50 balloon was used to balloon over the proximal and distal aspects, as well as all the junctions and a completion angiogram was obtained that showed excellent perfusion of both renal arteries, no endoleak, perfusion of both hypogastric arteries and both external iliac arteries. The wire, catheter and sheath were removed. There were signals in the feet. The heparin was reversed with protamine. The Perclose were tied down. Hemostasis was achieved in the groins. 4-0 Monocryl was placed in the subcuticular layer. Both groins were hemostatic and closed and sealed with Dermabond. There were no complications. I was present and scrubbed for the entire procedure. MD RUSS Dougherty/josefina , 07:20 PM , 07:35 PM
[2018-07-18] MEDS: Senna/Docusate Sodium 8.6/50 MG Tablet PO SCH (21:03)
[2018-07-18] MEDS: Furosemide 20 MG Tablet PO SCH (21:03)
[2018-07-19 04:22] LABS: Hematocrit 35.6 % (35.0-46.0); Hemoglobin 11.7 gm/dL (11.6-15.3); Mean Corpuscular HGB Conc 32.8 % (32.0-36.0); Mean Corpuscular Volume 94.5 fL (80.0-100.0); Mean Platelet Volume 7.7 fL (7.0-11.0); Platelet Count 240 th/mm3 (150-450); Red Blood Count 3.77 mil/mm3 (4.00-5.30); Red Cell Distribution Width 13.6 % (11.6-17.2); White Blood Count 9.2 th/mm3 (4.0-11.0)
[2018-07-19 04:55] LABS: Calcium 7.8 mg/dL (8.5-10.1); Carbon Dioxide 28.4 meq/L (21.0-32.0)
--- NOTE | 2018-07-19 07:25 | P.PNVS ---
Subjective Post Op Day #: 1 Procedure: iliac branch EVAR Subjective/Hospital Course: Pt had a little bit of post-operative nausea but feels better now. Already OOB and ambulating. Benito out this morning - not yet voided. mild groin discomfort. Objective Vital Signs / I&O: Vital Signs 07/18/18 08:59 07/18/18 09:47 07/18/18 13:08 Temperature 97.9 F 97.6 F Pulse Rate 80 86 85 Respiratory Rate 20 18 20 Blood Pressure 114/68 100/55 L Pulse Oximetry 92 L 99 07/18/18 13:15 07/18/18 13:30 07/18/18 13:45 Temperature Pulse Rate 79 74 69 Respiratory Rate 19 17 18 Blood Pressure 97/55 L 100/64 92/52 L Pulse Oximetry 99 95 94 L 07/18/18 14:00 07/18/18 14:15 07/18/18 14:30 Temperature Pulse Rate 70 70 69 Respiratory Rate 16 20 17 Blood Pressure 85/51 L 83/53 L 90/55 L Pulse Oximetry 93 L 92 L 91 L 07/18/18 14:45 07/18/18 15:00 07/18/18 16:00 Temperature 98 F Pulse Rate 71 74 76 Respiratory Rate 21 Blood Pressure 98/59 L Pulse Oximetry 90 L 07/18/18 16:09 07/18/18 17:00 07/18/18 18:00 Temperature Pulse Rate 72 76 Respiratory Rate Blood Pressure Pulse Oximetry 93 L 07/18/18 19:00 07/18/18 20:00 07/18/18 21:00 Temperature 97.7 F Pulse Rate 78 78 78 Respiratory Rate 22 Blood Pressure 102/57 L Pulse Oximetry 92 L 07/18/18 22:00 07/18/18 23:00 07/18/18 23:55 Temperature 97.7 F Pulse Rate 76 81 Respiratory Rate 22 Blood Pressure 93/54 L Pulse Oximetry 92 L 93 L 07/19/18 00:00 07/19/18 01:00 07/19/18 02:00 Temperature Pulse Rate 78 76 76 Respiratory Rate Blood Pressure Pulse Oximetry 07/19/18 03:00 07/19/18 03:31 07/19/18 04:00 Temperature 98.0 F Pulse Rate 83 75 82 Respiratory Rate 22 26 H Blood Pressure 96/51 L Pulse Oximetry 91 L 07/19/18 05:00 07/19/18 06:00 Temperature Pulse Rate 80 94 H Respiratory Rate Blood Pressure Pulse Oximetry Intake & Output 07/18/18 07/19/18 07/19/18 18:59 06:59 18:59 Intake Total 2850 / 2850 480 / 480 Output Total 700 / 700 900 / 900 Balance 2150 / 2150 -420 / -420 Weight 94.6 kg 91 kg Intake: IV 1500 / 1500 Heparin/NS PF Inj 500 ML @ 0 0 / 0 mls/hr .ROUTE .STK-MED ONE Rx#: [id number] LR 1000 mL Inj 1,000 ML @ 30 1000 / 1000 mls/hr IV.CONT .Q24H ONE Rx#: [id number] LR 1000 mL Inj 500 ML @ 999 mls 500 / 500 /hr IV.SIG .Q31M [facility] Rx#: [id number] Oral 350 / 350 480 / 480 Anesthesia Amount 1000 / 1000 Output: Urine 900 / 900 Estimated Blood Loss 100 / 100 Urine Amount (Catheter) 600 / 600 Indwelling Urethral Catheter 600 / 600 Other: # Bowel Movements 0 Weight On Admission 94.6 kg Exam: sitting in bed, no distress Groins without ecchymoses or hematoma feet warm, palpable pulses abdomen nontender Laboratory Results - last 24 hr 07/18/18 07/18/18 07/19/18 08:55 14:20 03:38 WBC 9.8 9.2 RBC 3.47 L 3.77 L Hgb 10.9 L 11.7 Hct 32.6 L 35.6 MCV 93.9 94.5 MCH 31.5 31.0 MCHC 33.5 32.8 RDW 13.7 13.6 Plt Count 203 D 240 MPV 8.3 7.7 Neut % (Auto) 69.8 Lymph % (Auto) 15.6 [place] % (Auto) 11.5 H Eos % (Auto) 2.4 Baso % (Auto) 0.7 Neut # (Auto) 6.8 Lymph # (Auto) 1.5 [place] # (Auto) 1.1 H Eos # (Auto) 0.2 Baso # (Auto) 0.1 WBC Differential . Differential Comment Auto diff final Sodium Potassium Chloride Carbon Dioxide Anion Gap BUN Creatinine Estimated GFR Random Glucose Calcium Blood Type A Positive Blood Type Recheck Required Antibody Screen Negative 07/19/18 03:38 WBC RBC Hgb Hct MCV MCH MCHC RDW Plt Count MPV Neut % (Auto) Lymph % (Auto) [place] % (Auto) Eos % (Auto) Baso % (Auto) Neut # (Auto) Lymph # (Auto) [place] # (Auto) Eos # (Auto) Baso # (Auto) WBC Differential Differential Comment Sodium 139 Potassium 4.0 Chloride 103 Carbon Dioxide 28.4 Anion Gap 8 BUN 8 Creatinine 0.70 Estimated GFR 83 L Random Glucose 108 H Calcium 7.8 L Blood Type Blood Type Recheck Antibody Screen Assessment and Plan - Assessment (1) Abdominal aortic aneurysm Code(s): I71.4 - Abdominal aortic aneurysm, without rupture Status: Acute - Plan POD#1 s/p iliac branch EVAR looks great 1. Await voiding 2. d/c today 3. RTC 1m with CTA A/P Discharge Planning: today Daughter: [phone]
[2018-07-19] MEDS: Furosemide 20 MG Tablet PO SCH (08:34)
[2018-07-19] MEDS: Senna/Docusate Sodium 8.6/50 MG Tablet PO SCH (08:34)
[2018-07-19] MEDS ORDERED: amLODIPine 5 MG Tablet PO SCH (09:00)
[2018-07-19] MEDS ORDERED: Calcium Carbonate 500 MG Tablet PO SCH (09:00)
[2018-07-19] MEDS ORDERED: VITAMIN C 500 MG PO SCH (09:00)
--- NOTE | 2018-07-19 09:28 | P.DS ---
Discharge Summary - Admission Date 07/18/18 08:13 - Admission Diagnosis (1) Abdominal aortic aneurysm - Discharge Date 07/19/18 - Discharge Diagnosis (1) History of repair of aneurysm of abdominal aorta using endovascular stent graft Status: Acute (2) Abdominal aortic aneurysm Status: Acute - Summary Brief History from admission: 67 yo female with incidentally found 6 cm AAA - no abdominal pain, no new back pain. Presents for elective repair. Procedure: iliac branch EVAR Significant Findings: Pt w/o abdominal pain/Back pain Ab S/NT LE warm distal pulses present Abnormal Lab Results 07/18/18 07/18/18 07/19/18 08:55 14:20 03:38 WBC 9.8 9.2 RBC 3.47 L 3.77 L Hgb 10.9 L 11.7 Hct 32.6 L 35.6 MCV 93.9 94.5 MCH 31.5 31.0 MCHC 33.5 32.8 RDW 13.7 13.6 Plt Count 203 D 240 MPV 8.3 7.7 Neut % (Auto) 69.8 Lymph % (Auto) 15.6 [place] % (Auto) 11.5 H Eos % (Auto) 2.4 Baso % (Auto) 0.7 Neut # (Auto) 6.8 Lymph # (Auto) 1.5 [place] # (Auto) 1.1 H Eos # (Auto) 0.2 Baso # (Auto) 0.1 WBC Differential . Differential Comment Auto diff final Sodium Potassium Chloride Carbon Dioxide Anion Gap BUN Creatinine Estimated GFR Random Glucose Calcium Blood Type A Positive Blood Type Recheck Required Antibody Screen Negative 07/19/18 03:38 WBC RBC Hgb Hct MCV MCH MCHC RDW Plt Count MPV Neut % (Auto) Lymph % (Auto) [place] % (Auto) Eos % (Auto) Baso % (Auto) Neut # (Auto) Lymph # (Auto) [place] # (Auto) Eos # (Auto) Baso # (Auto) WBC Differential Differential Comment Sodium 139 Potassium 4.0 Chloride 103 Carbon Dioxide 28.4 Anion Gap 8 BUN 8 Creatinine 0.70 Estimated GFR 83 L Random Glucose 108 H Calcium 7.8 L Blood Type Blood Type Recheck Antibody Screen Hospital Course: 67 yo female with incidentally found 6 cm AAA - no abdominal pain, no new back pain. Presents for elective repair. POD 1 Pt w/o complaints Bilateral groins S/NT Pt w/o abdominal/Back pain LE warm w/ motor intact Palpable distal pulses noted Pt clear for d/c Arranged out pt f/u in 4W with a surveillance CTA A/P E forcse reviewed- Rx post operative pain medication for out pt management - Discharge Instructions Any questions or concerns: Call [facility] at [facility] [phone] Discharge Plan - Discharge Disposition Patient Disposition: 01 Discharge Home - Discharge Condition Condition: Good - Discharge Order Discharge Orders: Discharge Order (Routine); Ordered 07/19/18 Ordered By: Pricila Tillman - Physicians Team Primary Care Provider: Katerine Polk Attending Provider: Yan Oliver - Rxs /Orders / Referrals /Forms Prescriptions: New atorvastatin 20 mg Tablet 20 mg PO HS Qty: 30 RF: 3 oxycodone 5 mg Tablet 5 mg PO Q4H PRN (Reason: pain ) Qty: 20 RF: 0 Continue amlodipine 5 mg Tablet 5 mg PO DAILY ascorbic acid (vitamin C) [Vitamin C] 500 mg Tablet Extended Release 500 mg PO DAILY aspirin 81 mg Tablet,Chewable 81 mg PO DAILY calcium carbonate [Calcium 500] 500 mg calcium (1,250 mg) Tablet 500 mg PO DAILY cholecalciferol (vitamin D3) [Vitamin D3] 1,000 unit Capsule 1,000 unit PO DAILY furosemide 20 mg Tablet 20 mg PO BID ipratropium-albuterol 0.5 mg-3 mg(2.5 mg base)/3 mL Solution For Nebulization 3 ml INHALATION QID PRN (Reason: Wheezing) losartan 50 mg Tablet 50 mg PO DAILY potassium chloride [K-Tab] 10 mEq Tablet Extended Release 10 meq PO BID vitamin E 400 unit Capsule 400 unit PO DAILY Referrals: Katerine Polk MD [Primary Care Provider] - See Instructions - Discharge Instructions Patient Printed Instructions: Oxycodone, Rapid Release (By mouth), Atorvastatin (By mouth), Heart Healthy Diet (DC), Acute Wound Care (DC), Endovascular Aneurysm Repair of Abdominal Aorta (DC) - Post Discharge Care Plan Care Plan Goals: Discharge Care Plan Goals Directions to Meet your Goals: 1. Pain Relief: You will recover faster after surgery if your pain is kept under control: * Take pain medicine as directed by your doctor. * Tell your doctor if you have questions about what youre feeling, if your medicines dont reduce your pain, or if you suddenly feel worse. 2. Activity: * Dont drive until your doctor says its OK. And never drive while taking opioid pain medicine. * Ask someone to stand nearby while you shower or do other activities, just in case you need help. 3. Diet and Exercise: * Maintain a healthy weight. If needed, get help to loose extra pounds. * Avoid fatty and fried foods. Stick to lean meats, such as chicken or fish. * Cut back on salt: - Limit canned, dried, packaged, and fast foods. - Dont add salt to your food at the table. - Season foods with herbs instead of salt when you cook * Ask your healthcare provider when you can start a walking program: - If you havent already started a walking program in the hospital, begin with short walks (about 5 minutes) at home. Go a little longer each day. - Choose a safe place with a level surface, such as a local park or mall. - Wear supportive shoes to prevent injury to your knees and ankles. - Walk with someone. Its more fun and helps you stay with it. 4. Prevent Falls/Injury: * If you are unstable on your feet, remember to ask for help from others. * Avoid using very hot water while showering. It can affect your circulation and make you dizzy. * Free up your hands so that you can use them to keep balance. Use a lori pack , apron, or pockets to carry things. * Arrange your household to keep the items you need handy. Keep everything else out of the way. * Remove items that may cause you to fall, such as throw rugs and electrical cords. * Use nonslip bath mats, grab bars, an elevated toilet seat, and a shower chair in your bathroom * Sit on a shower stool or chair when you shower to keep from falling. 5. Incision Care: Healing takes several weeks. * Check your incision daily for redness, swelling, tenderness, or drainage. * Prevent infection by washing your hands often. If an infection occurs, it will need to be treated right away. * Call your doctor right away if you think you may have an infection. Symptoms include a fever or an incision that leaks white, green, or yellow fluid. * Don't soak your incision in water until your doctor says its OK. This means no hot tubs, bathtubs, or swimming pools. * Follow your doctor's instructions for changing the dressing. * Dont rub the incision, or apply creams or lotions to it. 6. Follow-Up: Do Not miss your follow-up appointment. Keep up with all your appointments and yearly check ups
[2018-07-19 11:22] VITALS: PULSE 92
[2018-07-19 12:33] VITALS: BP 110/63; RESP 20; TEMP 98.6; O2SAT 97
== END 2018-07-19 12:47 | disposition home or self-care (01) ==
LOC: HSDI 08:13 → HCPC 15:09
PROVIDERS: ADMIT Surgery; ATTEND Surgery